=== PATIENT | male | born 1955 | race Caucasian/White ===

== ENCOUNTER 2019-06-16 13:16 | Emergency (ER) | payer MEDICARE, SELFPAY ==
[2019-06-16 13:29] VITALS: BP 150/84; PULSE 57; RESP 19; TEMP 36.8; O2SAT 99; BMI 20.9
--- NOTE | 2019-06-16 13:45 | XR_ITS ---
WS: [id number] XR chest 1V portable [id number] REASON FOR EXAM: cough FINDINGS: Hyper aerated lungs are seen. The cardiac silhouette is not enlarged there is arteriosclerotic changes present. No pneumonia, pleural effusion, pulmonary edema, or mass effect. There is calcified vasculature groin up to the right lung. The hilum and apices normal. XR/XR chest 1V portable [id number] IMPRESSION: Advanced chronic obstructive pulmonary disease. Arteriosclerotic changes.
--- NOTE | 2019-06-16 13:45 | ED_ITS ---
Entered by Amanda Kat, acting as scribe for Josefina Cooper HPI - Chest Pain General: Chief Complaint: Chest Pain Stated Complaint: abnorml ekg Time Seen by Provider: 06/16/19 13:44 Source: patient and family Mode of arrival: ambulatory Limitations: no limitations History of Present Illness: HPI narrative: 64 yo Male presents to ED with complaint of chest pain. Pt states that the pain started at about 1100 today. Pt states that he was at the home when this started. Pt states that he had an aching pain that radiated down his arm. Pt states that he had tingling in his right arm. Pt denies shortness of breath and sweating. Pt states that he had chills. Pt states that he didn't have nausea or vomiting. Pt states that his pain lasted about 30 minutes. Pt states that he took 2 aspirin and drank some cold water. Pt states that his pain is now resolved. Pt's caregiver states that the patient's chest has been bothering him. Pt states that he has been coughing but not like he did when he was smoking. MD complaint: chest pain Pertinent past history: prior MO Onset (ago): hour(s) Timing of current episode: episodic and now resolved Prior episodes: Yes Onset: during rest Pain location: substernal Pain radiation: right arm Pain scale (0-10): 0 Quality: aching Relieving factors: medication-other (aspirin) Exacerbating factors: nothing Context: recent illness Associated symptoms: Deny abdominal pain, diaphoresis, dyspnea, fever(s), nausea, palpitations, syncope or vomiting Treatment prior to arrival: aspirin Review of Systems General: Reports: other (negative unless marked) Const: Reports: chills; Denies: fever or diaphoresis Eyes: Denies: change in vision or blurry vision ENMT: Denies: throat pain, painful swallowing, hoarseness, ear pain, ear discharge, Change in hearing or nasal discharge Card: Reports: chest pain; Denies: palpitations, irregular heart rhythm, syncope, pre-syncope, shortness of breath on exertion or shortness of breath when lying down Resp: Denies: shortness of breath GI: Denies: abdominal pain, nausea, vomiting, vomiting blood, coffee grounds in vomit, diarrhea, constipation, cramping, blood in stool or black tarry stool : Denies: flank pain, difficulty urinating, painful urination, urinary frequency, urinary urgency, decreased urine ouput, urinary incontinence or blood in urine Musc: Reports: extremity pain (tingling in right arm); Denies: neck pain, back pain, extremity swelling, joint pain, joint swelling, joint warmth or joint stiffness Skin/Breast: Denies: rash, skin tenderness or yellow skin Neuro: Denies: headache, numbness in extremities, weakness in extremities, changes in sensation, lack of coordination, difficulty walking, dizziness, vertigo or confusion Endo: Denies: excessive thirst, tired all the time, cold intolerance, excessive sweating, flushing or hot flashes Joseph/Lymph: Denies: easy bruising, easy bleeding, petechiae or enlarged lymph nodes All/Imm: Denies: hives, throat swelling, tongue swelling, facial swelling or acute wheezing PFSH ED PFSH: Social History Smoking and tobacco status: former smoker Physical Exam Const: COMMON NORMALS: no apparent distress, oriented x3, no limitations, healthy appearing and well nourished EXAM LIMITATIONS: no altered mental status GENERAL APPEARANCE: cooperative, well kempt and well developed ORIENTATION/CONSCIOUSNESS: Yes awake HENMT: COMMON NORMALS: normocephalic, head/scalp atraumatic, hearing grossly normal bilaterally, external ears normal, EAC's normal, external nose normal and moist oral mucous membranes HEAD & SCALP: normal to inspection, normocephalic and atraumatic FACE & SINUS: normal facial exam and face symmetric NOSE: external nose normal and nares normal EXTERNAL EAR: Yes external ears normal EXTERNAL AUDITORY CANAL: EAC's normal MOUTH: oral and palatal mucosa normal and tongue normal Eye: COMMON NORMALS: PERRL, EOMs intact bilaterally, conjunctivae normal and no scleral icterus GENERAL EYE: normal appearance of both eyes and normal light reflex CONJUNCTIVA: Yes conjunctivae normal SCLERA: sclerae normal CORNEA: Yes corneas normal PUPIL: Yes PERRL DIRECT OPHTHALMOSCOPY: Yes normal light reflex Neck/C-Spine: COMMON NORMALS: full ROM, no lymphadenopathy, supple, no meningeal signs and no JVD GENERAL: Yes normal visual inspection and Yes trachea midline CERVICAL SPINE: Yes cervical ROM normal Chest: COMMONS NORMALS: inspection of chest normal and palpation of chest norm al Resp: COMMON NORMALS: normal respiratory effort, no retractions, no use of accessory muscles and clear to auscultation bilaterally EFFORT & INSPECTION: Yes able to speak in complete sentences AUSCULTATION: clear to auscultation bilaterally Cardio: COMMON NORMALS: no JVD, regular rate, regular rhythm, S1 normal heart sound, S2 normal heart sound, no gallops, no clicks, no murmurs and no rub JUGULAR VENOUS DISTENTION: no JVD RATE: regular rate RHYTHM: regular rhythm HEART SOUNDS: S1 normal and S2 normal GI: COMMON NORMALS: soft to palpation, non-tender, no hepatosplenomegaly and no masses INSPECTION: Yes normal to inspection PALPATION: Yes soft and Yes no hepatosplenomegaly : COMMON NORMALS: Yes no CVA tenderness BLADDER/KIDNEY EXAM: Yes no CVA tenderness Back/Pelvis: COMMON NORMALS: no CVA tenderness, thoracic and lumbar spine normal to inspection, no thoracic nor lumbar tenderness and thoraco-lumbar ROM normal Extremity: COMMON NORMALS: normal to inspection, full ROM, normal capillary refill, no joint enlargement, no clubbing, cyanosis or edema and no calf tenderness Neuro: COMMON NORMALS: oriented x3, CN's II-XII intact bilaterally, moves all extremities, no focal motor deficits and no sensory deficits noted MENINGEAL SIGNS: Yes no meningeal signs Psych: COMMON NORMALS: mental status grossly normal, thought process normal, cooperative, affect normal, speech normal and activity/motor behavior normal APPEARANCE: Yes well kempt SPEECH: Yes normal speech THOUGHT PROCESS: normal thought process Skin: COMMON NORMALS: no rashes or lesions noted, skin turgor normal, no jaundice, no petechiae and no mottling GENERAL SKIN EXAM: no rashes or lesions noted and turgor normal Course ED course: 1531 -I discussed with the patient his risk for heart disease and I have informed him it would be best if he stayed for cardiac rule out and stress testing but he adamantly refuses. He states that he feels fine now and he wants to go home. I did review with the patient the risk of going home and including or severe permanent disability but he still wants to go. I did review the patient's cath report from 2012 and there was no evidence of any coronary artery disease at that time. Vital Signs: Vital signs: Vital Signs Temperature 98.3 F 03/05/20 13:29 Pulse Rate 57 L 06/16/19 13:29 Respiratory Rate 19 H 06/16/19 13:29 Blood Pressure 150/84 06/16/19 13:29 Pulse Oximetry 99 06/16/19 13:29 MDM - Chest Pain MDM Narrative: Medical decision making narrative: Mr. Becker is a nice 64-year-old male who comes in with chest pain. He had radiation to his right arm but no other associated symptoms. His heart score is 3. I have discussed with the patient again at length including the risk of or severe permanent disability by leaving. Despite this lengthy discussion the patient refuses. He understands he is at risk but he wants to follow-up with his regular doctor. Patient has been warned but he is also been welcomed to return. Lab Data: Attestation: I reviewed the patient's lab results. Labs: Lab Results 06/16/19 06/16/19 06/16/19 Range/Units 13:56 13:56 13:56 WBC 8.1 (4.0-10.0) 10^3/ uL RBC 5.01 (4.1-5.3) 10^6/u L Hgb 14.7 (11.7-16.6) g/dL Hct 44.0 (42.0-52.0) % MCV 87.8 (80-94) fL MCH 29.3 (28.0-34.0) pg MCHC 33.4 (30.0-36.0) g/dL RDW 12.9 (12.1-15.1) % Plt Count 214 (130-400) 10^3/c mm MPV 9.3 (7.4-10.4) fL Neut % (Auto) 61.4 % Lymph % (Auto) 24.6 % [place] % (Auto) 7.5 % Eos % (Auto) 5.0 % Baso % (Auto) 1.4 % Neut # (Auto) 5.0 (1.8-7.7) 10^3/u L Lymph # (Auto) 2.0 (0.8-4.8) 10^3/u L [place] # (Auto) 0.6 (0.2-0.9) 10^3/u L Eos # (Auto) 0.4 (0.0-0.8) 10^3/u L Baso # (Auto) 0.1 (0.0-0.1) 10^3/u L Nucleated RBC % (a uto) 0 % Nucleated RBCs # 0.0 /100WBC Sodium 139 (136-145) mmol/L Potassium 3.9 (3.5-5.1) mmol/L Chloride 102 (98-107) mmol/L Carbon Dioxide 25 (22-29) mmol/L Anion Gap 15.9 (5-19) BUN 12 (8-23) mg/dL Creatinine 1.0 (0.7-1.2) mg/dL GFR Calculation 74.8 L (90-130) mL/min Glucose 103 (65-115) mg/dL Calcium 10.1 (8.5-10.5) mg/dL Magnesium 2.1 (1.7-2.3) mg/dL Total Bilirubin 0.5 (0.15-1.2) mg/dL AST 19 (0-40) U/L ALT 13 (0-41) U/L Alkaline Phosphata se 96 (40-130) IU/L Troponin T Baselin e 12 (0-15) ng/mL Troponin T 120 Min [place] (0-15) ng/mL Delta Troponin T (0-10) ABS# NT-Pro-B Natriuret Pep 385 H (0-125) pg/mL Total Protein 7.7 (6.6-8.7) g/dL Albumin 4.2 (3.5-5.2) g/dL Globulin 3.5 (1.3-4.6) g/dL Lipase 26 (13-60) U/L Influenza Type A A g (Negative) POC Influenza B Ag (Negative) 06/16/19 06/16/19 Range/Units 14:29 17:11 WBC (4.0-10.0) 10^3/ uL RBC (4.1-5.3) 10^6/u L Hgb (11.7-16.6) g/dL Hct (42.0-52.0) % MCV (80-94) fL MCH (28.0-34.0) pg MCHC (30.0-36.0) g/dL RDW (12.1-15.1) % Plt Count (130-400) 10^3/c mm MPV (7.4-10.4) fL Neut % (Auto) % Lymph % (Auto) % [place] % (Auto) % Eos % (Auto) % Baso % (Auto) % Neut # (Auto) (1.8-7.7) 10^3/u L Lymph # (Auto) (0.8-4.8) 10^3/u L [place] # (Auto) (0.2-0.9) 10^3/u L Eos # (Auto) (0.0-0.8) 10^3/u L Baso # (Auto) (0.0-0.1) 10^3/u L Nucleated RBC % (a uto) % Nucleated RBCs # /100WBC Sodium (136-145) mmol/L Potassium (3.5-5.1) mmol/L Chloride (98-107) mmol/L Carbon Dioxide (22-29) mmol/L Anion Gap (5-19) BUN (8-23) mg/dL Creatinine (0.7-1.2) mg/dL GFR Calculation (90-130) mL/min Glucose (65-115) mg/dL Calcium (8.5-10.5) mg/dL Magnesium (1.7-2.3) mg/dL Total Bilirubin (0.15-1.2) mg/dL AST (0-40) U/L ALT (0-41) U/L Alkaline Phosphata se (40-130) IU/L Troponin T Baselin e (0-15) ng/mL Troponin T 120 Min [place] 10.76 (0-15) ng/mL Delta Troponin T -1.24 L (0-10) ABS# NT-Pro-B Natriuret Pep (0-125) pg/mL Total Protein (6.6-8.7) g/dL Albumin (3.5-5.2) g/dL Globulin (1.3-4.6) g/dL Lipase (13-60) U/L Influenza Type A A g Negative (Negative) POC Influenza B Ag Negative (Negative) Imaging Data^: CXR: Radiologist's impression: [address] [address] XRay Report Signed Patient: Jack Becker #: [id number] : 3Acct#:[id number] Age/Sex: 64 / MADM Date: 06/16/19 Loc: ERRoom/Bed: Attending Dr: Ordering Provider/Ordering MD: Josefina Cooper DO Date of Service: 06/16/19 Procedure(s): XR chest 1V portable [id number] Accession Number(s): [id number] Report Number: [id number] WS: [id number] XR chest 1V portable [id number] REASON FOR EXAM: cough FINDINGS: Hyper aerated lungs are seen. The cardiac silhouette is not enlarged there is arteriosclerotic changes present. No pneumonia, pleural effusion, pulmonary edema, or mass effect. There is calcified vasculature groin up to the right lung. The hilum and apices normal. XR/XR chest 1V portable [id number] IMPRESSION: Advanced chronic obstructive pulmonary disease. Arteriosclerotic changes. Dictated By:Merlin Gottlieb DO Signed By:Merlin Gottlieb DOSigned Date/Time:06/16/191412 DD/ 1411 EKG Data^: EKG 1: Attestation: I personally reviewed and interpreted this EKG as follows: EKG interpretation date: 06/16/19 EKG interpretation time: 14:00 Interpretation: Normal sinus rhythm at 51 beats a minute, first-degree AV block, left bundle branch block. Otherwise no acute ST or T wave changes. Similar to previous. EKG 2: Attestation: I personally reviewed and interpreted this EKG as follows: EKG interpretation date: 06/16/19 EKG interpretation time: 15:44 Discharge Plan Discharge Patient Disposition: Left Against Medical Advice Clinical Impression: Chest pain Qualifiers: Chest pain type: unspecified Qualified Code(s): R07.9 - Chest pain, unspecified Condition: Stable Prescriptions: No Action Aspir-81 81 mg Tablet,Delayed Release (Dr/Ec) 81 mg PO DAILY RF: 0 metoprolol tartrate 25 mg tablet 25 mg PO BID RF: 0 Discharge Orders: Discharge Order (Routine); Ordered 06/16/19 Ordered By: Josefina Cooper Referrals: Tona Morse FNP [Primary Care Provider] - 1-3 days Discharge Diet: Advance as tolerated Discharge Activity: Increase activity as tolerated Patient Instructions: Chest Pain (ED) Activity Restrictions/Additional Instructions: You're leaving AGAINST MEDICAL ADVICE and are at risk for or severe permanent disability by doing so. You are more than welcome to return at any time for recheck and for further evaluation and care suture change you change your mind. Stop your metoprolol until advised further by your primary care physician. You have refused to stay for further evaluation of your heart and this puts you at risk of or severe permanent disability so if you change your mind or your symptoms change/worsen you are more than welcome to return to the ER at any time for further evaluation and care. Coding Level of Care Code ED Research Subject for Chg Fwd Exam Comprehensive The documentation recorded by the Shey owens Carmen, accurately reflects the service I personally performed and the decisions made by , Josefina Cooper Jun 16, 2019 13:16
--- NOTE | 2019-06-16 13:45 | ECG_ITS ---
Measurements Intervals [place] Rate: 51 P: 40 VA: 217 QRS: -11 QRSD: 195 T: 96 QT: 516 QTc: 476 SINUS BRADYCARDIA WITH FIRST DEGREE AV BLOCK LEFT BUNDLE BRANCH BLOCK [120+ ms QRS DURATION, 80+ ms Q/S IN V1/V2, 85+ ms R IN I/aVL/V5/V6] No previous ECG available for comparison Electronically Signed On 06-16-2019 16:58:36 CORPORATE CONSULTANT by Kai Kaufman M.D. [id number]
[2019-06-16 14:21] LABS: Basophils # 0.1 10^3/uL (0.0-0.1); Basophils % 1.4 %; Eosinophils # 0.4 10^3/uL (0.0-0.8); Hemoglobin 14.7 g/dL (11.7-16.6); Lymphocytes % 24.6 %; Mean Corpuscular HGB Conc 33.4 g/dL (30.0-36.0); Mean Corpuscular Hemoglobin 29.3 pg (28.0-34.0); Mean Corpuscular Volume 87.8 fL (80-94); Mean Platelet Volume 9.3 fL (7.4-10.4); Monocytes # 0.6 10^3/uL (0.2-0.9); Monocytes % 7.5 %; Neutrophils % 61.4 %; Nucleated Red Blood Cells % 0 %; Platelet Count 214 10^3/cmm (130-400); Red Blood Count 5.01 10^6/uL (4.1-5.3); Red Cell Distribution Width 12.9 % (12.1-15.1); White Blood Count 8.1 10^3/uL (4.0-10.0)
[2019-06-16] MEDS: nitroglycerin 0.4 mg sublingual Tablet SUBLINGUAL (14:27)
[2019-06-16] MEDS: aspirin 325 mg Tablet PO (14:27)
[2019-06-16] MEDS: sodium chloride 0.9% 1,000 ML 100 ML IV (14:28)
[2019-06-16 14:42] LABS: Troponin(5th) Baseline 12 ng/mL (0-15)
[2019-06-16 14:52] LABS: Alanine Aminotransferase 13 U/L (0-41); Albumin Level 4.2 g/dL (3.5-5.2); Alkaline Phosphatase 96 IU/L (40-130); Anion Gap 15.9 (5-19); Aspartate Amino Transferase 19 U/L (0-40); Blood Urea Nitrogen 12 mg/dL (8-23); Calcium 10.1 mg/dL (8.5-10.5); Carbon Dioxide 25 mmol/L (22-29); Chloride 102 mmol/L (98-107); Globulin 3.5 g/dL (1.3-4.6); Glomerular Filtration Rate 74.8 mL/min (90-130); Glucose 103 mg/dL (65-115); Lipase 26 U/L (13-60); Magnesium 2.1 mg/dL (1.7-2.3); NT Pro B Type Natriuretic Pept 385 pg/mL (0-125); Potassium 3.9 mmol/L (3.5-5.1); Sodium 139 mmol/L (136-145); Total Bilirubin 0.5 mg/dL (0.15-1.2); Total Protein 7.7 g/dL (6.6-8.7)
[2019-06-16 14:57] LABS: Influenza A by IFA Negative (Negative); Influenza B by IFA Negative (Negative)
--- NOTE | 2019-06-16 15:45 | ECG_ITS ---
Measurements Intervals [place] Rate: 45 P: 60 GA: 224 QRS: 4 QRSD: 180 T: 88 QT: 540 QTc: 471 SINUS BRADYCARDIA WITH FIRST DEGREE AV BLOCK LEFT BUNDLE BRANCH BLOCK Compared to ECG 06/16/2019 14:00:41 No significant changes Electronically Signed On 06-17-2019 15:53:20 CLINICAL TEAM LEAD by Hedy Vasquez M.D. [id number] f
[2019-06-16 17:38] LABS: Troponin 5 2HR 10.76 ng/mL (0-15)
[2019-06-16 17:39] LABS: Troponin 5 2HR Delta -1.24 ABS# (0-10)
[2019-06-16 18:40] VITALS: BP 147/82; PULSE 62; RESP 18; TEMP 36.3; O2SAT 99
--- NOTE | 2019-06-16 19:45 | ECG_ITS ---
Measurements Intervals [place] Rate: 59 P: 10 HI: 195 QRS: -26 QRSD: 185 T: 108 QT: 473 QTc: 470 SINUS BRADYCARDIA LEFT BUNDLE BRANCH BLOCK No previous ECG available for comparison Electronically Signed On 06-17-2019 15:53:31 BUCKET CHUCKER by Hedy Vasquez M.D. [id number] f
== END 2019-06-16 18:57 | disposition left against medical advice (07) ==
PROVIDERS: Emergency Provider Emergency Medicine; PCP Nurse Practitioner Family
DX: R07.9 Chest pain, unspecified (principal); J44.9 Chronic obstructive pulmonary disease, unspecified; R00.1 Bradycardia, unspecified; I44.7 Left bundle-branch block, unspecified; I44.0 Atrioventricular block, first degree; Z87.891 Personal history of nicotine dependence
CPT/HCPCS: 12345; 36415; 71045; 80053; 83690; 83735; 83880; 84484; 85025; 87804; 93005; 96360; 96361; 99283; 99284; J7030

== ENCOUNTER → 2021-07-08 10:22 | Outpatient (BNVA) | payer MEDICARE, MEDICAID, SELFPAY | PROVIDERS: PCP Nurse Practitioner Family; Referring Provider Nurse Practitioner Family; Visit Provider Surgery | DX: K40.90 Unilateral inguinal hernia, without obstruction or gangrene, not specified as recurrent (principal) | CPT/HCPCS: 87635 ==

== ENCOUNTER 2021-07-15 10:06 | Day surgery (SDC) | payer MEDICARE, MEDICAID, SELFPAY ==
--- NOTE | 2021-07-12 09:13 | ECG_ITS ---
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 Measurements Intervals [place] Rate: 42 P: 44 SC: 216 QRS: -46 QRSD: 178 T: 110 QT: 546 QTc: 460 Interpretive Statements SINUS BRADYCARDIA WITH FIRST DEGREE AV BLOCK LEFT AXIS DEVIATION [QRS AXIS < -30] INTRAVENTRICULAR CONDUCTION DELAY [130+ ms QRS DURATION] Compared to ECG 06/16/2019 15:44:19 Left-axis deviation now present Intraventricular conduction delay now present Left bundle-branch block no longer present Electronically Signed On 07-12-2021 13:59:09 CDT by Ty Ortega M.D. [id number]
[2021-07-12 09:17] VITALS: BMI 20.2
[2021-07-12 10:18] LABS: Basophils # 0.1 10^3/uL (0.0-0.1); Basophils % 2.3 %; Eosinophils # 0.3 10^3/uL (0.0-0.8); Hematocrit 44.6 % (42.0-52.0); Hemoglobin 14.9 g/dL (11.7-16.6); Lymphocytes # 1.3 10^3/uL (0.8-4.8); Lymphocytes % 28.3 %; Mean Corpuscular HGB Conc 33.4 g/dL (30.0-36.0); Mean Corpuscular Hemoglobin 30.8 pg (28.0-34.0); Mean Corpuscular Volume 92.1 fl (80-94); Mean Platelet Volume 9.3 fL (7.4-10.4); Monocytes # 0.4 10^3/uL (0.2-0.9); Monocytes % 8.5 %; Neutrophils # 2.52 10^3/uL (1.8-7.7); Neutrophils % 53.7 %; Nucleated Red Blood Cells % 0 %; Platelet Count 215 10^3/cmm (130-400); Red Blood Count 4.84 10^6/uL (4.1-5.3); Red Cell Distribution Width 12.3 % (12.1-15.1); White Blood Count 4.7 10^3/uL (4.0-10.0)
[2021-07-12 10:32] LABS: Anion Gap 13.4 (5-19); Blood Urea Nitrogen 17 mg/dL (8-23); Calcium 10.1 mg/dL (8.5-10.5); Carbon Dioxide 24 mmol/L (22-29); Chloride 105 mmol/L (98-107); Creatinine Clr Calc Pharmacy 89.3605; Glomerular Filtration Rate 96.1 mL/min (90-130); Glucose 68 mg/dL (65-115); Osmolality Calculated 286 mOsm/kg (285-295); Potassium 4.4 mmol/L (3.5-5.1); Sodium 138 mmol/L (136-145)
--- NOTE | 2021-07-12 11:09 | P.ANESASSM_ITS ---
Pre-Anesthetic Assessment Height/Weight: Height 1.8 m Weight 65.771 kg Preop Diagnosis: Hernia Operation Date: 07/15/21 11:45 Proposed Procedures p Laparoscopic Inguinal Hernia Repair 32260/right inguinal hernia K40.90(Right) - Glenn Chang MD Was Beta Theresa taken within 24 hours: Yes Social Tobacco Exam alert, oriented x 3 and regular rate & rhythm B/L breath sounds diminished Airway Submandibular: within normal limits Cervical ROM: within normal limits Mallampati: Class I Dentition: false Pulmonary Denies CARTY, SOB Able to chop wood and run chain saw daily w/o CP, SOB CV/HEM Arrythmia and Myocardial Infarction (Reports having a hx of several NE's with cardiac cath, however states he he has not had cardiac stents ) Hx of non-ischemic cardiomyopathy and LBB w/ EF of 45-50% METS > 4 , able to go up flight of stairs w/o CP, run chain saw and chop wood without CP or SOB EKG pending final read ? Interpretive Statements SINUS BRADYCARDIA WITH FIRST DEGREE AV BLOCK LEFT AXIS DEVIATION? [QRS AXIS < -30] INTRAVENTRICULAR CONDUCTION DELAY? [130+ ms QRS DURATION] Compared to ECG 06/16/2019 15:44:19 Left-axis deviation now present Intraventricular conduction delay now present Left bundle-branch block no longer present [id number] None reported Hepatic None reported GI None reported Metabolic None reported Musc/skel None reported Neuropsych None reported Anesthetic Plan ASA status: 3 Anesthesia: Anesthesia Evaluation and General Other: We discussed risk and benefits of general anesthesia including PONV, sore throat (sometimes severe), corneal abrasion, positioning and peripheral nerve injuries, life threatening allergic reaction, post operative ICU admission requiring prolonged intubation, stroke, heart attack, , and rare incidences of recall. Patient consents to proceed with general anesthesia. Risk of > 500 ml blood loss (7ml/kg in children): No Medications/Allergies Home Medications Medication Instructions Recorded Confirmed Last Taken Type aspirin 81 mg tablet,delayed 81 mg PO DAILY 06/16/19 07/12/21 06/16/19 History release (Aspir-) loratadine-pseudoephedrine ER 10 1 tab PO DAILY 03/15/21 07/12/21 Unknown History mg-240 mg tablet,extended [id number] (Claritin-D 24 Hour) metoprolol tartrate 25 mg tablet 25 mg PO BID #180 tab 03/15/21 07/12/21 Unknown Rx nitroglycerin 0.4 mg sublingual 0.4 mg SUBLINGUAL Q5M PRN #30 tab 03/15/21 07/12/21 Unknown Rx tablet tamsulosin 0.4 mg capsule (Flomax) 0.4 mg PO DAILY 07/08/21 07/12/21 Unknown History Allergies Allergy/AdvReac Type Severity Reaction Status Date / Time No Known Allergies Allergy Verified 07/09/21 17:21 [facility] Anesthesia Medical History Hypertension Left bundle branch block Non-ischemic cardiomyopathy LVEF 40-45% Tobacco abuse Family History Father CAD (coronary artery disease) Grandfather CAD (coronary artery disease) Stroke Brother Diabetes Hypertension Denies family history of Clotting disorder Dementia Hyperlipidemia Psychiatric illness Chronic kidney disease (CKD) Suicide Anesthesia complication Bleeding disorder Family history of premature coronary artery disease Lung disease Cancer Social History Smoking and tobacco status: current every day smoker Alcohol intake: never Marital status: Single service: No Current occupational status: retired Data Anesthesia : 07/12/21 09:35 07/12/21 09:35 Short CBC 07/12/21 Range/Units 09:35 WBC 4.7 (4.0-10.0) 10^3/uL Hgb 14.9 (11.7-16.6) g/dL Hct 44.6 (42.0-52.0) % MCV 92.1 (80-94) fl Plt Count 215 (130-400) 10^3/cmm Neut % (Auto) 53.7 % Neut # (Auto) 2.52 (1.8-7.7) 10^3/uL BMP 07/12/21 09:35 Sodium 138 Potassium 4.4 Chloride 105 Carbon Dioxide 24 BUN 17 Creatinine 0.8 Glucose 68 Calcium 10.1 Cardiac Studies: No Data to Display
[2021-07-15] VITALS (10 sets, daily range): BP systolic 122–143; BP diastolic 62–69; PULSE 47–86; RESP 12–18; TEMP 36.4–36.6; O2SAT 97–100
--- NOTE | 2021-07-15 10:41 | P.ANESUD_ITS ---
Pre-Anesthetic Update Pre-Anesthetic Assessment: Date of Surgery/Procedure: 07/15/21 Preop Erna gnosis: Right inguinal Hernia Proposed Procedure: Operation Date: 07/15/21 11:45 Proposed Procedures p Laparoscopic Inguinal Hernia Repair 03730/right inguinal hernia K40.90(Right) - Glenn Chang MD Any changes to Pre-Anesthetic Assessment?: No Last Intake: Intake Last Liquid Date 07/14/21 Last Liquid Time 21:00 Last Solid Date 07/14/21 Last Solid Time 21:00 Vitals: Temperature 97.9 F 07/15/21 10:12 Temperature Source Temporal Artery S can 07/15/21 10:12 Pulse Rate 51 L 07/15/21 10:12 Respiratory Rate 18 07/15/21 10:12 Blood Pressure 128/67 07/15/21 10:12 Blood Pressure Chasity n 87 07/15/21 10:12 Pulse Oximetry 97 07/15/21 10:12 Oxygen Delivery Me thod 07/15/21 10:17 Exam: Pre-Anes Outpt Exam: alert, oriented x 3, clear to auscultation bilaterally and regular rate & rhythm Cardiac Studies: No Data to Display
[2021-07-15] MEDS: sodium chloride 0.9% 1,000 ML 30 ML IV (10:42)
[2021-07-15] MEDS: acetaminophen 1,000 MG/100 ML PIGGYBACK 400 MG IV (10:42)
--- NOTE | 2021-07-15 12:44 | W.PM.OPSUD ---
Surgery/Procedure H&P Update DATE OF PROCEDURE: July 15, 2021 DATE H&P PERFORMED: 07/08/21 H&P UPDATE INFORMATION: I have reviewed H&P completed within last 30 days, I have examined patient prior to procedure and No changes to prior documentation PREOP DIAGNOSIS: Right inguinal Hernia PRIMARY INDICATION FOR PROCEDURE: The same PLANNED PROCEDURE: Operation Date: 07/15/21 12:35 Proposed Procedures p Laparoscopic Inguinal Hernia Repair 56652/right inguinal hernia K40.90(Right) - Glenn Chang MD
[2021-07-15] MEDS: ampicillin-sulbactam 3 GM in sodium chloride 0.9% (plus) 50 ML IV (14:12)
--- NOTE | 2021-07-15 15:28 | P.OP_ITS ---
Operative Report Date of procedure: July 15, 2021 Pre-op diagnosis: Preop Diagnosis Right inguinal Hernia Post-op diagnosis: The same in addition to umbilical hernia Post-op findings: Right indirect inguinal hernia and lipoma of the cord Small umbilical hernia containing omental fat Procedure done: 1-Laparoscopic right inguinal hernia repair with mesh placement 2-Laparoscopic excision of lipoma of the right spermatic cord 3-laparoscopic umbilical hernia repair without mesh placement Implants: Right 3D medium size Specimens removed/disposition: Umbilical hernial sac and content lipoma of the cord Surgeon: Glenn Chang MD Campaign Assistant: senior technologist Martha Circulating nurse Tasha Anesthesia: General (water pipe installer Asa Lewis and Michela) Estimated blood loss (mL): 10 IV fluids (mL): 900 Procedure: Transabdominal preperitoneal (ALYSIA) approach. Patient was identified in the holding area the right groin was marked by me.patient was then transferred to the operating room where he was placed in supine position, with both arms were tucked, antibiotic was given with induction, endotracheal tube was placed per anesthesia, Garza catheter was inserted by the circulating nurse and revealed clear urine, prep and drape of the abdomen was done under the usual sterile technique as well as the scrotal area. Time-out was done verifying the patient's name/date of /planned procedure destination after the procedure, all were in agreement. SCDs confirmed to be functioning, preoperative antibiotics administered per protocol, and beta jenny protocol was confirmed. A vertical skin incision of 1.2 cm was made with 11 blade knife through the supra umbilicus, noticed that the patient does have chronic incarcerated omental fat within the umbilical site that was excised and sent for permanent pathology. Noticed that the defect less than an inch in diameter. And prior to the dissection of the hernia sac. Incision was carried down to the subcutaneous tissue and deepened to identify the anterior fascia, two stay sutures were applied to the fascia, and safe entrance to the abdominal cavity was achieved after the hernia was dissected a Martines trocar technique safe entry to the abdominal cavity was achieved verified by using 10 mm zero degree laparoscopy, switched to a 30 degrees scope,low flow followed by a higher flow of CO2 gas up to 15 mmHg. There was no evidence of injury to intra-abdominal structures from the port entry, attention was deviated to both groins, there was a large indirect hernia defect with herniation of peritoneum and preperitoneal fat was noted on the right side, two 5 mm ports were placed on the right and left lateral aspect of the abdomen slightly above the level of the umbilicus, under direct visualization, Exparel local was injected at all trocar sites prior to incisions. The peritoneum above the level of the iliopubic tract was incised to the left of the midline and dissection was performed to create a preperitoneal space medial to lateral aspect up to anterior superior iliac spine on the right side. Dissection was continued onto the medial aspect and the right spermatic was identified, there was evidence of indirect inguinal hernia .the sac was dissected. As it applied medial to the right inferior epigastric vessels/ dissection was performed to clear the space lateral to the spermatic cord and dorsomedial to it, the hernia sac was reduced and retracted far back, so there was an evidence of lipoma of the cord that was excised and sent for permanent pathology. Also there was a small direct hernia defect that was dissected. Then a medial right 3-D mesh was rolled and placed into the abdominal cavity through the Martines port, after the mesh was introduced it was positioned to lie in the myopectineal orifice and the mesh was unrolled and this covered the entire my myope pectineal orifice. Intra-abdominal pressure was dropped to 12 mmHg to help placement of the mesh good position On the lateral aspect of the mesh extended up to the anterior superior iliac spine on the medial aspect the mesh crossed the midline onto the left side, then using absorbable tacks, placed above the iliopubic tract onto the rectus abdominis muscle on the medial aspect and also to the lateral abdominal wall superomedial to the sacroiliac spine, then the mesh was also anchored to the pubis and the Jamey's ligament inferiorly. The peritoneal leaflets were then brought together to cover the mesh and isolated from the other viscera, extra tacks were used to secure the peritoneum in good position. Final look demonstrated good hemostasis and the mesh in good position A total of 20 mL Exparel 40 ml Normal saline 20 ml bupivacaine 0.25% were injected at the remaining of the tacks site and trocar sites as well Final look demonstrated good hemostasis.Then the fascia on the supra umbilical fascial defect was closed using #1 PDS sutures under direct visualization using fascial closure device Andre Milan.All ports were removed,then the abdomen was desufflated. All skin incisions were closed with 4-0 Monocryl subcuticular suture and Dermabo nd was applied. The patient tolerated the procedure well, Garza catheter was taken out ,got extubated and was transferred to the recovery area in stable condition All counts of instruments, needles and sponges were completed I was present for the whole entire procedure
--- NOTE | 2021-07-15 16:01 | ANE.PACU2 ---
Inpatient post-anesthesia follow up: Airway intact: Yes Vital signs: Temperature 97.6 F Pulse Rate 86 Respiratory Rate 14 Blood Pressure 132/65 Pulse Oximetry 100 Oxygen Delivery Me thod Nasal Cannula Oxygen Flow Rate 3 Fraction of Inspir ed Oxygen Hydration adequate: Yes Nausea and vomiting: No Pain level: 2 Mental status: Baseline
--- NOTE | 2021-07-15 16:02 | SUR.PHASEI ---
15:42 RECEIVED PATIENT FROM OR STAFF. SB ON MONITOR. AIRWAY PATENT ,VENTILATING WELL.
--- NOTE | 2021-07-15 16:04 | SUR.PHASEI ---
15:55 ORAL AIRWAY DC ED . AIRWAY PATENT. SATS 100%
[2021-07-15] MEDS: ondansetron 2 mg/ML SDV 2 mL 4 MG IVP (16:37)
[2021-07-15] MEDS: fentaNYL 50 mcg/mL INJ 2mL IVP (16:37)
[2021-07-15] MEDS: HYDROcodone-acetaminophen 5-325 mg Tablet 1 TAB PO (16:53)
== END 2021-07-15 17:12 | disposition home or self-care (01) ==
PROVIDERS: Anesthesiology; PCP Nurse Practitioner Family; Visit Provider Surgery
PROC: (CPT 49650; principal; 2021-07-15 12:35)
PROC: 0WQF4ZZ Repair Abdominal Wall, Percutaneous Endoscopic Approach (ICD-10-PCS; CPT 49650; 2021-07-15 12:35)
DX: K40.90 Unilateral inguinal hernia, without obstruction or gangrene, not specified as recurrent (principal); D17.6 Benign lipomatous neoplasm of spermatic cord; K42.0 Umbilical hernia with obstruction, without gangrene; I25.2 Old myocardial infarction; Z95.5 Presence of coronary angioplasty implant and graft; I42.8 Other cardiomyopathies; R00.1 Bradycardia, unspecified; I44.0 Atrioventricular block, first degree; Z82.49 Family history of ischemic heart disease and other diseases of the circulatory system; F17.210 Nicotine dependence, cigarettes, uncomplicated; Z79.82 Long term (current) use of aspirin
CPT/HCPCS: 49650; 49653; 51702; 80048; 85025; 88302; 88304; 93005; C9290; J0295; J1100; J2405; J2704; J3010; J3490; J7030

== ENCOUNTER → 2021-07-25 12:13 | Outpatient (BNVA) | payer MEDICARE, MEDICAID, SELFPAY | PROVIDERS: PCP Nurse Practitioner Family; Visit Provider Surgery | DX: Z98.890 Other specified postprocedural states (principal); F17.210 Nicotine dependence, cigarettes, uncomplicated ==

== ENCOUNTER → 2021-09-05 13:28 | Outpatient (BNVA) | payer MEDICARE, MEDICAID, SELFPAY | PROVIDERS: PCP Nurse Practitioner Family; Visit Provider Surgery | DX: Z09 Encounter for follow-up examination after completed treatment for conditions other than malignant neoplasm (principal) | CPT/HCPCS: 99024 ==

== ENCOUNTER → 2021-09-13 10:38 | Outpatient (BNVA) | payer MEDICARE, MEDICAID, SELFPAY | PROVIDERS: PCP Nurse Practitioner Family; Visit Provider Internal Medicine | DX: I42.8 Other cardiomyopathies (principal); I10 Essential (primary) hypertension; Z87.891 Personal history of nicotine dependence | CPT/HCPCS: 99213 ==

== ENCOUNTER 2021-10-26 12:38 | Inpatient (IN) | payer MEDICARE, MEDICAID, SELFPAY ==
[2021-10-26] VITALS (10 sets, daily range): BP systolic 105–116; BP diastolic 44–65; PULSE 47–54; RESP 17; TEMP 36.2–37.2; O2SAT 94–97; BMI 19.4
--- NOTE | 2021-10-26 13:07 | W.ED.CHESTPA ---
HPI - Chest Pain General: Chief Complaint: Chest Pain Stated Complaint: cp,weakness Time Seen by Provider: 10/26/21 13:07 History of Present Illness: Mr. Becker is a 66-year-old gentleman with history of hypertension, tobaccoism, nonischemic cardiomyopathy presenting to the emergency department due to chest pain. He reports infrequent history of chest pain perhaps less than once per week however this is becoming more frequent and more intense. Today he describes an episode of chest pain that occurred with exertion which was pressure in the middle of his chest with radiation down the right arm. Additionally had mild headache and presyncopal type feelings where he found it difficult to walk. This feeling has improved however the chest pain persisted until multiple nitro end EMS administered nitro paste. Denies other recent changes in health. Intensity symptoms at worst was moderate to severe. Course is improved with the nitro as mentioned. No other specific changes in health, exacerbating, or alleviating factors identified. Onset (ago): hour(s) Timing of current episode: constant Prior episodes: Yes Onset: during exertion Pain location: substernal Pain radiation: right arm and neck Severity: moderate Quality: other Relieving factors: nothing Exacerbating factors: exertion Associated symptoms: Reports other (Presyncope) Review of Systems General: Reports: 10 or more systems reviewed and unremarkable except in HPI and below PFSH ED PFSH: Medical History (Updated 10/29/21 @ 00:01 by ) Chest pain Hypertension Left bundle branch block Non-ischemic cardiomyopathy LVEF 40-45% Pre-syncope Right groin hernia Sinus bradycardia Tobacco abuse Surgical History (Updated 10/27/21 @ 12:00 by Oren Tillman MD) Hx of hernia repair Laparoscopic Inguinal Hernia Repair 12777/right inguinal hernia Family History Father CAD (coronary artery disease) Grandfather CAD (coronary artery disease) Stroke Brother Diabetes Hypertension Denies family history of Clotting disorder Dementia Hyperlipidemia Psychiatric illness Chronic kidney disease (CKD) Suicide Anesthesia complication Bleeding disorder Family history of premature coronary artery disease Lung disease Cancer Social History Smoking and tobacco status: current some day smoker Alcohol intake: never Marital status: Single service: No Current occupational status: retired Physical Exam Const: COMMON NORMALS: patient oriented x3 and alert GENERAL APPEARANCE: cooperative and well developed HENMT: COMMON NORMALS: normocephalic and atraumatic HEAD & SCALP: normocephalic and atraumatic THROAT: posterior oropharynx normal Eye: COMMON NORMALS: conjunctivae normal CONJUNCTIVA: Yes conjunctivae normal SCLERA: sclerae normal Neck/C-Spine: COMMON NORMALS: supple GENERAL: Yes trachea midline Resp: COMMON NORMALS: normal respiratory effort and clear to auscultation bilaterally EFFORT & INSPECTION: Yes able to speak in complete sentences AUSCULTATION: clear to auscultation bilaterally Cardio: COMMON NORMALS: regular rate and regular rhythm RATE: regular rate RHYTHM: regular rhythm GI: COMMON NORMALS: Soft to palpation PALPATION: Yes Soft to palpation and No Tenderness to palpation present (GI) PERCUSSION: normal to percussion Extremity: GENERAL: Yes normal exam except as noted and No edema Neuro: COMMON NORMALS: patient oriented x3, CN's II-XII intact bilaterally, moves all extremities, no focal motor deficits and no sensory deficits noted SENSORIUM/ORIENTATION: Yes alert and No Orientation impaired Psych: COMMON NORMALS: mental status grossly normal and Normal thought process present THOUGHT PROCESS: Normal thought process present Course ED course: - Patient was seen and evaluated by me at bedside - Patient placed on cardiac monitors, IV access obtained - Initial evaluation notable for exam as above. EKG showing sinus rhythm with bradycardia and bundle branch block. No STEMI. - Labs and xrays personally interpreted by me - Patient had already received aspirin - Labs notable for no significant hematologic or metabolic abnormality to explain symptoms. Delta troponin negative. BNP only trace elevated. - Imaging notable for no lobar consolidation or pneumothorax on chest x-ray. CT head obtained secondary to presyncope and negative for acute intracranial pathology. I was subsequently called to reassess patient who endorsed left facial tingling. No focal neurologic deficits appreciated on exam however given clinical history advanced imaging felt to be necessary. CTA negative for acute pathology requiring intervention - Upon serial reexamination after treatment the patient was similar - Based on patient history, evaluation, and testing as interpreted the most likely cause of the patient's condition is chest pain with presyncope in a patient who is not low risk by heart score. - The results of ED evaluation were discussed with the patient including plan for admission due to requirement for level of care not available if discharged to prevent significant worsening/deterioration. - Admitting service was contacted and Dr Tillman with the hospitalist service agreed to admit the patient - Patient was admitted without further deterioration or significant events. Note: Click bubbles or prepopulated murry in note writing are used for assistance with data collection and billing and are inherently more limited than narrative and other text portions of this note. Please use narrative for additional clinical history and defer to narrative/free test for any case of contradictory information. If information appears in only free text or click bubble it should be considered present or absent as reported. Please contact note fiction and nonfiction prose writer for clarifications of clinical information or contradictory information. MDM is a brief summary, contradictory or erroneous seeming information should be clarified and full note should be reviewed. Vital Signs: Vital signs: Vital Signs Temperature 98.4 F 10/28/21 14:05 Pulse Rate 90 10/28/21 14:05 Respiratory Rate 16 10/28/21 11:45 Blood Pressure 166/95 10/28/21 14:05 Pulse Oximetry 95 10/28/21 14:05 Oxygen Delivery Me thod 10/28/21 14:05 MDM - Chest Pain Medical Decision Making 66-year-old gentleman presenting with chest pain and presyncope. ED evaluation without evidence of STEMI or acute PR. Patient is not low risk by heart score and giving increased frequency of chest pain story is concerning for unstable angina. Admitted for further management. Medical Records I reviewed the patient's medical records. Lab Data I reviewed the patient's lab results. : 10/28/21 03:20 10/28/21 03:20 Radiology Impressions Chest X-Ray 10/26/21 13:08 IMPRESSION: Emphysematous changes, lungs are clear Head CT 10/26/21 13:43 IMPRESSION: Negative for intracranial hemorrhage or mass effect. Head/Neck CTA 10/26/21 15:34 IMPRESSION: No large vessel stenosis or occlusion. IMPRESSION: No stenosis or occlusion. REFERENCES: NASCET CRITERIA. The degree of internal carotid artery stenosis is based on NASCET criteria. Normal is no stenosis. Mild is less than 50% stenosis. Moderate is 50-69% stenosis. Severe is 70% to 99% stenosis. Total occlusion is no detectable patent lumen. Laboratory Results WBC 6.2 10^3/uL (4.0-10.0) 10/26/21 11:23 RBC 4.49 10^6/uL (4.1-5.3) 10/26/21 11:23 Hgb 14.2 g/dL (11.7-16.6) 10/26/21 11:23 Hct 41.3 % (42.0-52.0) L 10/26/21 11:23 MCV 92.0 fl (80-94) 10/26/21 11:23 MCH 31.6 pg (28.0-34.0) 10/26/21 11:23 MCHC 34.4 g/dL (30.0-36.0) 10/26/21 11:23 RDW 12.4 % (12.1-15.1) 10/26/21 11:23 Plt Count 235 10^3/cmm (130-400) 10/26/21 11:23 MPV 9.7 fL (7.4-10.4) 10/26/21 11:23 Neut % (Auto) 49.9 % 10/26/21 11:23 Lymph % (Auto) 33.4 % 10/26/21 11:23 [place] % (Auto) 10.6 % 10/26/21 11:23 Eos % (Auto) 4.0 % 10/26/21 11:23 Baso % (Auto) 1.8 % 10/26/21 11:23 Neut # (Auto) 3.11 10^3/uL (1.8-7.7) 10/26/21 11:23 Lymph # (Auto) 2.1 10^3/uL (0.8-4.8) 10/26/21 11:23 [place] # (Auto) 0.7 10^3/uL (0.2-0.9) 10/26/21 11:23 Eos # (Auto) 0.3 10^3/uL (0.0-0.8) 10/26/21 11:23 Baso # (Auto) 0.1 10^3/uL (0.0-0.1) 10/26/21 11:23 Nucleated RBC % (auto) 0 % 10/26/21 11:23 Nucleated RBCs # 0.0 /100WBC 10/26/21 11:23 Sodium 138 mmol/L (136-145) 10/26/21 11:23 Potassium 3.8 mmol/L (3.5-5.1) 10/26/21 11:23 Chloride 103 mmol/L (98-107) 10/26/21 11:23 Carbon Dioxide 24 mmol/L (22-29) 10/26/21 11:23 Anion Gap 14.8 (5-19) 10/26/21 11:23 BUN 9 mg/dL (8-23) 10/26/21 11:23 Creatinine 0.9 mg/dL (0.7-1.2) 10/26/21 11:23 GFR Calculation 83.9 mL/min (90-130) L 10/26/21 11:23 Glucose 142 mg/dL (65-115) H 10/26/21 11:23 Calculated Osmolality 287 mOsm/kg (285-295) 10/26/21 11:23 Calcium 9.1 mg/dL (8.5-10.5) 10/26/21 11:23 Iron 100 ug/dL (59-158) 10/26/21 16:00 TIBC 247 mcg/dl 10/26/21 16:00 % Saturation 40.4 % (20-50) 10/26/21 16:00 Unsat Iron Binding 147 ug/dL (112-347) 10/26/21 16:00 Total Bilirubin 0.5 mg/dL (0.15-1.2) 10/26/21 11:23 AST 18 U/L (0-40) 10/26/21 11:23 ALT 10 U/L (0-41) 10/26/21 11:23 Alkaline Phosphatase 89 IU/L (40-130) 10/26/21 11:23 Troponin T Baseline 8 ng/L (0-15) 10/26/21 11:23 Troponin T 120 Minute 7.85 ng/L (0-15) 10/26/21 16:00 Delta Troponin T -0.15 ABS# (0-10) L 10/26/21 16:00 NT-Pro-B Natriuret Pep 383 pg/mL (0-125) H 10/26/21 11:23 Total Protein 6.3 g/dL (6.6-8.7) L 10/26/21 11:23 Albumin 4.0 g/dL (3.5-5.2) 10/26/21 11:23 Globulin 2.3 g/dL (1.3-4.6) 10/26/21 11:23 Lipase 15 U/L (13-60) 10/26/21 11:23 Vitamin B12 313 pg/mL (232-1245) 10/26/21 16:00 TSH 1.85 uIU/mL (0.27-4.20) 10/26/21 16:00 Discharge Plan Discharge Patient Disposition: Admitted As Inpatient Admit Provider: Oren Tillman Clinical Impression: Chest pain Condition: Stable Discharge Diet: Regular Discharge Activity: Resume usual activity Coding Level of Care Code ED Neonatal Nurse for Chg Fwd Exam Comprehensive
--- NOTE | 2021-10-26 13:08 | ECG_ITS ---
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 Measurements Intervals [place] Rate: 45 P: 62 IN: 230 QRS: -12 QRSD: 181 T: 96 QT: 535 QTc: 468 Interpretive Statements SINUS BRADYCARDIA WITH FIRST DEGREE AV BLOCK LEFT BUNDLE BRANCH BLOCK [120+ ms QRS DURATION, 80+ ms Q/S IN V1/V2, 85+ ms R IN I/aVL/V5/V6] Compared to ECG 10/26/2021 14:49:35 No significant changes Electronically Signed On 10-28-2021 8:09:53 CDT by Steve Huang M.D. [id number]
--- NOTE | 2021-10-26 13:08 | XRR_ITS ---
PROCEDURE INFORMATION: Exam: XR Chest Exam date and time: 10/26/2021 1:26 PM Age: 66 years old Clinical indication: Pain; Angina pectoris; Additional info: Chest pain TECHNIQUE: Imaging protocol: Radiologic exam of the chest. Views: 1 view. COMPARISON: CR XR chest 1V portable [id number] 06/16/2019 1:53 PM FINDINGS: Lungs: Emphysematous changes. Pleural spaces: Unremarkable. No pleural effusion. No pneumothorax. Heart/Mediastinum: Unremarkable. No cardiomegaly. Bones/joints: Unremarkable. XR/XR chest 1V portable [id number] IMPRESSION: Emphysematous changes, lungs are clear
[2021-10-26 13:19] LABS: Basophils # 0.1 10^3/uL (0.0-0.1); Basophils % 1.8 %; Eosinophils # 0.3 10^3/uL (0.0-0.8); Hematocrit 41.3 % (42.0-52.0); Hemoglobin 14.2 g/dL (11.7-16.6); Lymphocytes # 2.1 10^3/uL (0.8-4.8); Lymphocytes % 33.4 %; Mean Corpuscular HGB Conc 34.4 g/dL (30.0-36.0); Mean Corpuscular Hemoglobin 31.6 pg (28.0-34.0); Mean Platelet Volume 9.7 fL (7.4-10.4); Monocytes # 0.7 10^3/uL (0.2-0.9); Monocytes % 10.6 %; Neutrophils # 3.11 10^3/uL (1.8-7.7); Neutrophils % 49.9 %; Nucleated Red Blood Cells % 0 %; Platelet Count 235 10^3/cmm (130-400); Red Blood Count 4.49 10^6/uL (4.1-5.3); Red Cell Distribution Width 12.4 % (12.1-15.1); White Blood Count 6.2 10^3/uL (4.0-10.0)
[2021-10-26 13:33] LABS: Troponin(5th) Baseline 8 ng/L (0-15)
[2021-10-26 13:40] LABS: Alanine Aminotransferase 10 U/L (0-41); Alkaline Phosphatase 89 IU/L (40-130); Anion Gap 14.8 (5-19); Aspartate Amino Transferase 18 U/L (0-40); Blood Urea Nitrogen 9 mg/dL (8-23); Calcium 9.1 mg/dL (8.5-10.5); Carbon Dioxide 24 mmol/L (22-29); Chloride 103 mmol/L (98-107); Globulin 2.3 g/dL (1.3-4.6); Glomerular Filtration Rate 83.9 mL/min (90-130); Glucose 142 mg/dL (65-115); Lipase 15 U/L (13-60); NT Pro B Type Natriuretic Pept 383 pg/mL (0-125); Osmolality Calculated 287 mOsm/kg (285-295); Potassium 3.8 mmol/L (3.5-5.1); Sodium 138 mmol/L (136-145); Total Bilirubin 0.5 mg/dL (0.15-1.2); Total Protein 6.3 g/dL (6.6-8.7)
--- NOTE | 2021-10-26 13:43 | CTR_ITS ---
PROCEDURE INFORMATION: Exam: CT Head Without Contrast Exam date and time: 10/26/2021 2:02 PM Age: 66 years old Clinical indication: Other: Presyncope, difficulty walking TECHNIQUE: Imaging protocol: Computed tomography of the head without contrast. Radiation optimization: All CT scans at this facility use at least one of these dose optimization techniques: automated exposure control; mA and/or kV adjustment per patient size (includes targeted exams where dose is matched to clinical indication); or iterative reconstruction. COMPARISON: No relevant prior studies available. RADIATION DOSE METRICS: Total DLP (mGy-cm): 1185.68 FINDINGS: Brain: Normal. No hemorrhage. Unremarkable white matter. No mass effect. Cerebral ventricles: No ventriculomegaly. Paranasal sinuses: Paranasal sinus opacifications. Mastoid air cells: Visualized mastoid air cells are well aerated. Bones/joints: Unremarkable. No acute fracture. Soft tissues: Unremarkable. CT/CT head wo con* [id number] IMPRESSION: Negative for intracranial hemorrhage or mass effect.
--- NOTE | 2021-10-26 15:08 | ECG_ITS ---
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 Measurements Intervals [place] Rate: 46 P: 59 SD: 222 QRS: -28 QRSD: 182 T: 91 QT: 532 QTc: 466 Interpretive Statements SINUS BRADYCARDIA WITH FIRST DEGREE AV BLOCK LEFT BUNDLE BRANCH BLOCK [120+ ms QRS DURATION, 80+ ms Q/S IN V1/V2, 85+ ms R IN I/aVL/V5/V6] Compared to ECG 10/26/2021 12:55:59 No significant changes Electronically Signed On 10-28-2021 18:16:51 CDT by Steve Huang M.D. [id number]
--- NOTE | 2021-10-26 15:34 | CTR_ITS ---
PROCEDURE INFORMATION: Exam: CTA Head With Contrast, Arteries Exam date and time: 10/26/2021 3:47 PM Age: 66 years old Clinical indication: Numbness and weakness; Additional info: Facial numbness, presyncope TECHNIQUE: Imaging protocol: Computed tomographic angiography of the head with contrast. 3D rendering (Not supervised by radiologist): MIP and/or 3D reconstructed images were created by the technologist. Radiation optimization: All CT scans at this facility use at least one of these dose optimization techniques: automated exposure control; mA and/or kV adjustment per patient size (includes targeted exams where dose is matched to clinical indication); or iterative reconstruction. Contrast material: OMNIPAQUE 350; Contrast volume: 95 ml; Contrast route: INTRAVENOUS (IV); COMPARISON: CT head wo con* [id number] 10/26/2021 2:02 PM RADIATION DOSE METRICS: Total DLP (mGy-cm): 481.65 FINDINGS: ANTERIOR CIRCULATION: Right internal carotid artery: Unremarkable. Intracranial segment is patent with no significant stenosis. No aneurysm. Right middle cerebral artery: Unremarkable. No occlusion or significant stenosis. No aneurysm. Right anterior cerebral artery: Unremarkable. No occlusion or significant stenosis. No aneurysm. Left internal carotid artery: Unremarkable. Intracranial segment is patent with no significant stenosis. No aneurysm. Left middle cerebral artery: Unremarkable. No occlusion or significant stenosis. No aneurysm. Left anterior cerebral artery: Unremarkable. No occlusion or significant stenosis. No aneurysm. 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 No occlusion or significant stenosis. No aneurysm. Left vertebral artery: Unremarkable. No occlusion or significant stenosis. No aneurysm. Basilar artery: Unremarkable. No occlusion or significant stenosis. No aneurysm. Right posterior cerebral artery: Unremarkable. No occlusion or significant stenosis. No aneurysm. Left posterior cerebral artery: Unremarkable. No occlusion or significant stenosis. No aneurysm. Brain: No definite mass, mass effect, or midline shift. Cerebral ventricles: No ventriculomegaly. Bones/joints: Unremarkable. No acute fracture. Soft tissues: Unremarkable. PROCEDURE INFORMATION: Exam: CTA Neck With Contrast Exam date and time: 10/26/2021 3:47 PM Age: 66 years old Clinical indication: Numbness and weakness; Additional info: Facial numbness, presyncope TECHNIQUE: Imaging protocol: Computed tomographic angiography of the neck with contrast. 3D rendering (Not supervised by radiologist): MIP and/or 3D reconstructed images were created by the technologist. Radiation optimization: All CT scans at this facility use at least one of these dose optimization techniques: automated exposure control; mA and/or kV adjustment per patient size (includes targeted exams where dose is matched to clinical indication); or iterative reconstruction. Contrast material: OMNIPAQUE 350; Contrast volume: 95 ml; Contrast route: INTRAVENOUS (IV); COMPARISON: CT head wo con* [id number] 10/26/2021 2:02 PM RADIATION DOSE METRICS: Total DLP (mGy-cm): 481.65 FINDINGS: Right common carotid artery: No stenosis. No dissection or occlusion. Right internal carotid artery: No stenosis of the extracranial segment. No dissection or occlusion. Right external carotid artery: No occlusion or stenosis of the origin. Left common carotid artery: There is some atherosclerotic plaque distal left common carotid artery without significant stenosis. No dissection or occlusion. Left internal carotid artery: No stenosis of the extracranial segment. No dissection or occlusion. Left external carotid artery: No occlusion or stenosis of the origin. Right vertebral artery: No stenosis. No dissection or occlusion. Left vertebral artery: No stenosis. No dissection or occlusion. Soft tissues: Normal. No significant soft tissue swelling. Bones/joints: No acute fracture. CT/CT angio headneck* [id number] IMPRESSION: No large vessel stenosis or occlusion. IMPRESSION: No stenosis or occlusion. REFERENCES: NASCET CRITERIA. The degree of internal carotid artery stenosis is based on NASCET criteria. Normal is no stenosis. Mild is less than 50% stenosis. Moderate is 50-69% stenosis. Severe is 70% to 99% stenosis. Total occlusion is no detectable patent lumen.
--- NOTE | 2021-10-26 15:36 | PC.NURSE ---
physician notified Pt reported that he has numbness on his left check radiating to left lateral neck w/ pain. assess neurologically. no abnormalities noted. able to feel pain on left check, no focal deficits such as facial drooping or lip drooping. no headache.
[2021-10-26] MEDS: iohexol 350 mg/mL 100 mL Btl IV (15:54)
[2021-10-26 16:58] LABS: Troponin 5 2HR 7.85 ng/L (0-15)
[2021-10-26 17:07] LABS: Troponin 5 2HR Delta -0.15 ABS# (0-10)
--- NOTE | 2021-10-26 17:52 | PC.NURSE ---
report called to M/Duran Koch RN updated.
--- NOTE | 2021-10-26 18:09 | USCV_ITS ---
Eugenio Jack Age: 66 Gender: M : 1955 Exam Date: 10/26/2021 20:38 Ordering Phys: Oren Tillman MD Technologist: Joe Newton [place] [facility] [place]: nicm / chest pain BP: 105 / 54 HR: 47 Rhythm: Sinus Technical Quality: Adequate MEASUREMENTS (Male / Female) Normal Values 2D ECHO LV Diastolic Diameter PLAX 4.0 cm 4.2 - 5.9 / 3.9 - 5.3 cm LV Systolic Diameter PLAX 2.8 cm IVS Diastolic Thickness 2.3 cm 0.6 - 1.0 / 0.6 - 0.9 cm IVS Systolic Thickness 3.0 cm LVPW Diastolic Thickness 1.4 cm 0.6 - 1.0 / 0.6 - 0.9 cm LVPW Systolic Thickness 1.7 cm LVOT Diameter 2.3 cm LV Ejection Fraction 2D Teich 43.0 % LV Ejection Fraction MOD 2C 58.2 % LV Ejection Fraction 2C AL 57.4 % LA Diameter 2.9 cm LA Width 3.4 cm LA Height 3.4 cm Aorta at Sinotubular Diameter 2.9 cm IVC Diameter 1.1 cm M-MODE Aortic Annulus Diameter 3.8 cm LA Ao Ratio MM 0.7 MV E Point Septal Separation 1.9 cm DOPPLER AV Peak Velocity 60.8 cm/s LVOT Peak Velocity 43.0 cm/s AV Area Cont Eq vti 2.5 cm squared AV Area Cont Eq pk 3.0 cm squared MV Area PHT 3.2 cm squared Mitral E to A Ratio 0.8 MV E' Velocity 35.0 cm/s Mitral E to MV E' Ratio 6.6 Mitral E to LV E' Lateral Ratio 7.1 Mitral E to LV E' Septal Ratio 6.2 TR Peak Velocity 141.9 cm/s TR Peak Gradient 8.1 mmHg TR Mean Velocity 96.8 cm/s TR Mean Gradient 4.4 mmHg TR Velocity Time Integral 29.0 cm Right Atrial Pressure 3.0 mmHg Pulmonary Artery Systolic Pressu 11.1 mmHg PV Peak Velocity 57.0 cm/s FINDINGS Left Ventricle Technically limited quality echocardiogram. LV systolic function is grossly mildly reduced with EF of 45-50%. Regional wall motion abnormalities cannot be accurately assessed because of poor ultrasonic windows. Right Ventricle Grossly normal Right Atrium Not well-visualized. Left Atrium The left atrium is normal in size. Mitral Valve Not well-visualized. Trace mitral regurgitation Aortic Valve Not well-visualized Tricuspid Valve Not well-visualized. Trace tricuspid regurgitation Pulmonic Valve Not visualized Pericardium Normal pericardium without effusion. Aorta Normal ascending aorta dimension. IVC CONCLUSIONS Technically limited quality echocardiogram because of poor ultrasonic windows. Grossly LV systolic function is mildly reduced with EF of 45 to 50%. Regional wall motion abnormalities cannot be assessed because of poor ultrasonic windows. Trace mitral regurgitation. Trace tricuspid regurgitation. Compared to prior echocardiogram from 12/19/2013, no significant changes are seen Steve Huang MD (Electronically Signed) Final Date: 27 October 2021 12:48 S
--- NOTE | 2021-10-26 18:11 | ECG_ITS ---
[facility] Test Date: 2021-10-28 Pat Name: Jack Becker Department: Room: 255 Gender: Male Financial Assistance Specialist: Elisa Ly : 1955 Requested By: Oren Tillman Order Number: [id number] Johnny MD: Ty Ortega M.D. Interpretive Statements PROCEDURE: At the baseline, the EKG revealed normal sinus rhythm with a left bundle branch block. The baseline blood pressure was 120/66 mm Hg with a heart rate of 58 beats/min. Lexiscan was infused over a period of 20 seconds. A total of 0.4 milligrams of Lexiscan was infused. The stress phase was continued for a total of 5 minutes. Heart rate at the end of the stress phase was 84 with a blood pressure 116/59. The EKG at the peak infusion revealed no significant changes. Sestamibi was injected 20 seconds after the Lexiscan infusion. Blood pressure at the end of the recovery phase was 123/64 with a heart rate of 80 per minute. CONCLUSION: 1. The EKG response to Lexiscan infusion is uninterpretable because of the baseline changes 2. No LexiScan induced chest pain or cardiac arrhythmia 3. Normal blood pressure and heart rate response 4. Sestamibi/sestamibi perfusion scan pending; see separate report. Electronically Signed On 10-28-2021 14:03:28 CDT by Ty Ortega M.D. [id number]
--- NOTE | 2021-10-26 18:12 | P.HP_ITS ---
Providers/Chief Complaint Admitting Physician: Oren Tillman MD Primary Care Provider: Sherif Whitten Chief Complaint: cp,weakness History of Present Illness Jack Becker is a 66 year old male with past medical history of hypertension, nonischemic cardiomyopathy with an EF of 45 to 50% and a left bundle branch block, former smoker with last coronary angiogram in 2013 which showed normal coronaries presented to the Er with c/o chest pain which has become more pron ounced ove rthe past week. Patient is a poor historian and it is difficult to obtain details however does endorse feeling chest discomfort and subjective dyspnea upon ambulation. Additionally decribes feeling light headed, especially while getting up from a lying down or sitting position. Noted today to have sinus bradycardia on EKG, negative troponon series Review of Systems General: Reports: 10 or more systems reviewed and unremarkable except in HPI and below Const: Denies: fever(s), chills, body aches, change in appetite, change in weight, malaise, night sweats, diaphoresis, change in sleep pattern, daytime sleepiness or snoring Eyes: Denies: change in vision, blurry vision, photophobia, eye discomfort or eye discharge ENMT: Denies: throat pain, enlarged tonsils, hoarseness, mouth pain, oral sores, dry mouth, tinnitus, nasal congestion or post nasal drip Card: Denies: chest pain, palpitations, irregular heart rhythm, edema, swelling of feet/ankles, lightheadedness, syncope, pre-syncope, dyspnea on exertion, orthopnea, leg pain with exertion or acrocyanosis Resp: Denies: dyspnea, productive cough, non-productive cough, wheezing, stridor, pain on inspiration, change in phlegm color, hemoptysis or chest congestion GI: Denies: abdominal pain, nausea, vomiting, hematemesis, coffee ground emesis, dysphagia, heartburn, diarrhea, constipation, bloating, GI cramping, change in bowel habits, pain on defecation, hematochezia or melena : Denies: flank pain, difficulty urinating, dysuria, urinary frequency, urinary urgency, urinary hesitancy, urinary dribbling, difficulty starting urination, change in urine stream, nocturia or hematuria Musc: Denies: neck pain, back pain, extremity pain, joint pain, joint swelling, joint redness, joint stiffness or limited range of motion Neuro: Denies: headache(s), numbness in extremities, weakness in extremities, sensory changes, lack of coordination, difficulty walking, frequent falls, dizziness, vertigo, confusion, Slurred speech present, difficulty communicating thoughts or seizure-like activity Psych: Denies: anxiety, depression, mood swings, panic attacks, hopelessness or irritability Endo: Denies: polyuria, polydipsia, tired all the time, cold intolerance, excessive sweating, flushing or heat intolerance Joseph/Lymph: Denies: easy bruising or easy bleeding All/Imm: Denies: tongue swelling, facial swelling or acute wheezing Medications/Allergies Home Medications Medication Instructions Recorded Confirmed Last Taken Type metoprolol tartrate 25 mg tablet 25 mg PO BID #180 tab 03/15/21 10/26/21 10/26/21 Rx nitroglycerin 0.4 mg sublingual 0.4 mg SUBLINGUAL Q5M PRN #30 tab 03/15/2110/26/21 Rx tablet tamsulosin 0.4 mg capsule (Flomax) 0.4 mg PO DAILY 07/08/21 10/26/21 10/25/21 History aspirin 81 mg chewable tablet 81 mg PO DAILY 10/26/21 10/26/21 10/26/21 History loratadine 10 mg tablet 10 mg PO DAILY 10/26/21 10/26/21 10/26/21 History Allergies Allergy/AdvReac Type Severity Reaction Status Date / Time No Known Allergies Allergy Verified 09/07/21 09:21 PFSH Acute PFSH: Medical History (Updated 10/27/21 @ 12:00 by Oren Tillman MD) Hypertension Left bundle branch block Non-ischemic cardiomyopathy LVEF 40-45% Right groin hernia Tobacco abuse Surgical History (Updated 10/27/21 @ 12:00 by Oren Tillman MD) Hx of hernia repair Laparoscopic Inguinal Hernia Repair 20923/right inguinal hernia Family History Father CAD (coronary artery disease) Grandfather CAD (coronary artery disease) Stroke Brother Diabetes Hypertension Denies family history of Clotting disorder Dementia Hyperlipidemia Psychiatric illness Chronic kidney disease (CKD) Suicide Anesthesia complication Bleeding disorder Family history of premature coronary artery disease Lung disease Cancer Social History Smoking and tobacco status: current some day smoker Alcohol intake: never Marital status: Single service: No Current occupational status: retired Vitals/I&O/Wt Last Vital Signs Temp 97.6 F 10/26/21 14:32 Pulse 54 L 10/26/21 17:30 Resp 17 10/26/21 12:55 BP 105/54 10/26/21 17:30 Pulse Ox 94 10/26/21 17:30 Physical Exam Narrative: General: No acute distress, AO x3 HEENT: PERRLA, pupils bilaterally equal and reactive Chest: Normal vesicular breath sounds, no added sounds, equal good air entry bilaterally CVS: S1-S2 regular, bradycardia, no murmurs, no tachycardia, no gallops, no rubs Abdomen: Soft, nontender, no organomegaly, bowel sounds present Neuro: No focal deficits, no facial deformity, AO x3, power 5/5 in all limbs Data : 10/27/21 04:40 10/27/21 04:40 Other Labs: Abnormal lab results 10/26/21 10/26/21 10/26/21 Range/Units 11:23 11:23 16:00 Hct 41.3 L (42.0-52.0) % GFR Calculation 83.9 L (90-130) mL/min Glucose 142 H (65-115) mg/dL Delta Troponin T -0.15 L (0-10) ABS# NT-Pro-B Natriuret Pep 383 H (0-125) pg/mL Total Protein 6.3 L (6.6-8.7) g/dL HDL Cholesterol (60-100) mg/dL 10/27/21 10/27/21 Range/Units 04:40 04:40 Hct 39.9 L (42.0-52.0) % GFR Calculation (90-130) mL/min Glucose (65-115) mg/dL Delta Troponin T (0-10) ABS# NT-Pro-B Natriuret Pep (0-125) pg/mL Total Protein 6.2 L (6.6-8.7) g/dL HDL Cholesterol 47 L (60-100) mg/dL Radiology Impressions Chest X-Ray 10/26/21 13:08 IMPRESSION: Emphysematous changes, lungs are clear Head CT 10/26/21 13:43 IMPRESSION: Negative for intracranial hemorrhage or mass effect. Head/Neck CTA 10/26/21 15:34 IMPRESSION: No large vessel stenosis or occlusion. IMPRESSION: No stenosis or occlusion. REFERENCES: NASCET CRITERIA. The degree of internal carotid artery stenosis is based on NASCET criteria. Normal is no stenosis. Mild is less than 50% stenosis. Moderate is 50-69% stenosis. Severe is 70% to 99% stenosis. Total occlusion is no detectable patent lumen. Laboratory Results WBC 6.4 10^3/uL (4.0-10.0) 10/27/21 04:40 RBC 4.54 10^6/uL (4.1-5.3) 10/27/21 04:40 Hgb 13.9 g/dL (11.7-16.6) 10/27/21 04:40 Hct 39.9 % (42.0-52.0) L 10/27/21 04:40 MCV 87.9 fl (80-94) 10/27/21 04:40 MCH 30.6 pg (28.0-34.0) 10/27/21 04:40 MCHC 34.8 g/dL (30.0-36.0) 10/27/21 04:40 RDW 12.2 % (12.1-15.1) 10/27/21 04:40 Plt Count 197 10^3/cmm (130-400) 10/27/21 04:40 MPV 9.1 fL (7.4-10.4) 10/27/21 04:40 Neut % (Auto) 53.4 % 10/27/21 04:40 Lymph % (Auto) 30.5 % 10/27/21 04:40 [place] % (Auto) 8.4 % 10/27/21 04:40 Eos % (Auto) 6.2 % 10/27/21 04:40 Baso % (Auto) 1.2 % 10/27/21 04:40 Neut # (Auto) 3.43 10^3/uL (1.8-7.7) 10/27/21 04:40 Lymph # (Auto) 2.0 10^3/uL (0.8-4.8) 10/27/21 04:40 [place] # (Auto) 0.5 10^3/uL (0.2-0.9) 10/27/21 04:40 Eos # (Auto) 0.4 10^3/uL (0.0-0.8) 10/27/21 04:40 Baso # (Auto) 0.1 10^3/uL (0.0-0.1) 10/27/21 04:40 Nucleated RBC % (auto) 0 % 10/27/21 04:40 Nucleated RBCs # 0.0 /100WBC 10/27/21 04:40 D-Dimer 0.47 ug/mIFEU (0-0.59) 10/26/21 19:00 Sodium 140 mmol/L (136-145) 10/27/21 04:40 Potassium 3.9 mmol/L (3.5-5.1) 10/27/21 04:40 Chloride 106 mmol/L (98-107) 10/27/21 04:40 Carbon Dioxide 25 mmol/L (22-29) 10/27/21 04:40 Anion Gap 12.9 (5-19) 10/27/21 04:40 BUN 10 mg/dL (8-23) 10/27/21 04:40 Creatinine 0.8 mg/dL (0.7-1.2) 10/27/21 04:40 GFR Calculation 96.1 mL/min (90-130) 10/27/21 04:40 Glucose 88 mg/dL (65-115) 10/27/21 04:40 Estimat Average Glucose 111 10/27/21 04:40 Hemoglobin A1c 5.5 % (4.0-6.0) 10/27/21 04:40 Calculated Osmolality 288 mOsm/kg (285-295) 10/27/21 04:40 Calcium 9.0 mg/dL (8.5-10.5) 10/27/21 04:40 Iron 100 ug/dL (59-158) 10/26/21 16:00 TIBC 247 mcg/dl 10/26/21 16:00 % Saturation 40.4 % (20-50) 10/26/21 16:00 Unsat Iron Binding 147 ug/dL (112-347) 10/26/21 16:00 Total Bilirubin 0.4 mg/dL (0.15-1.2) 10/27/21 04:40 AST 17 U/L (0-40) 10/27/21 04:40 ALT 9 U/L (0-41) 10/27/21 04:40 Alkaline Phosphatase 89 IU/L (40-130) 10/27/21 04:40 Troponin T Baseline 8 ng/L (0-15) 10/26/21 11:23 Troponin T 120 Minute 7.85 ng/L (0-15) 10/26/21 16:00 Delta Troponin T -0.15 ABS# (0-10) L 10/26/21 16:00 Troponin T Hi Sens 6Hr 10.43 ng/L (0-15) 10/26/21 21:02 Troponin T Hi Sens 6Hr Delta 2.43 ng/L (0-12) 10/26/21 21:02 NT-Pro-B Natriuret Pep 383 pg/mL (0-125) H 10/26/21 11:23 Total Protein 6.2 g/dL (6.6-8.7) L 10/27/21 04:40 Albumin 3.7 g/dL (3.5-5.2) 10/27/21 04:40 Globulin 2.5 g/dL (1.3-4.6) 10/27/21 04:40 Triglycerides 83 mg/dL (0-150) 10/27/21 04:40 Cholesterol 163 mg/dL (0-200) 10/27/21 04:40 LDL Cholesterol, Calc 99 mg/dL (50-129) 10/27/21 04:40 Total VLDL Cholesterol 17 mg/dL (0-30) 10/27/21 04:40 HDL Cholesterol 47 mg/dL (60-100) L 10/27/21 04:40 Cholesterol/HDL Ratio 3.47 mg/dL (1.0-5.00) 10/27/21 04:40 Lipase 15 U/L (13-60) 10/26/21 11:23 Vitamin B12 313 pg/mL (232-1245) 10/26/21 16:00 Folate 18.4 ng/mL (4.5-32.2) 10/26/21 19:00 TSH 1.85 uIU/mL (0.27-4.20) 10/26/21 16:00 Urine Color Colorless (Yellow) 10/26/21 19:05 Urine Appearance Clear (CLEAR) 10/26/21 19:05 Urine pH 7 (5-7) 10/26/21 19:05 Ur Specific [place] 1.005 (1.005-1.030) 10/26/21 19:05 Urine Protein Neg (Negative) 10/26/21 19:05 Urine Glucose (UA) Norm (Normal) 10/26/21 19:05 Urine Ketones Negative (Negative) 10/26/21 19:05 Urine Blood Neg (Negative) 10/26/21 19:05 Urine Nitrate Negative (Negative) 10/26/21 19:05 Urine Bilirubin Neg (Negative) 10/26/21 19:05 Urine Urobilinogen Norm mg/dL (Negative) 10/26/21 19:05 Ur Leukocyte Esterase Negative (Negative) 10/26/21 19:05 Urine Opiates Screen Negative ng/mL (Negative) 10/26/21 19:05 Ur Barbiturates Screen Negative ng/mL (Negative) 10/26/21 19:05 Ur Phencyclidine Scrn Negative ng/mL (Negative) 10/26/21 19:05 Ur Amphetamines Screen Negative ng/mL (Negative) 10/26/21 19:05 U Benzodiazepines Scrn Negative ng/mL (Negative) 10/26/21 19:05 Urine Cocaine Screen Negative ng/mL (Negative) 10/26/21 19:05 U Marijuana (THC) Screen Negative ng/mL (Negative) 10/26/21 19:05 Influenza Type A Ag Negative (Negative) 10/26/21 18:25 Influenza Type B Ag Negative (Negative) 10/26/21 18:25 A&P Assessment and plan (1) Chest pain: Status: Acute (2) Sinus bradycardia: Status: Acute (3) Pre-syncope: Status: Acute (4) Non-ischemic cardiomyopathy: Status: Chronic (5) Hypertension: Status: Chronic Qualifiers: Hypertension type: essential hypertension Qualified Code(s): I10 - Essential (primary) hypertension Plan 66-year-old male with past medical history of nonischemic cardiomyopathy presenting today with complaints of chest pain and lightheadedness. CT and CTA head without any acute intracranial events. Presyncope most likely secondary to bradycardia. Cannot rule out cardiac event. Troponins cycle 4 now negative. Admit to telemetry monitoring. Sinus bradycardia may be related to use of metoprolol, will hold for now and monitor closely. Blood pressure currently ranging within normal range. Screen with D-dimer to evaluate for possibility of PE, if positive will obtain CTA of the chest. Troponin series without significant delta at this time, however cannot exclude possibility of anginal chest pain. Will perform stress test to evaluate for the same. Full code. Cardiac diet. Heparin for DVT prophylaxis. Attestations Medical Necessity Statement*: Admit 2 midnights for bradycardia leading to presyncope while ischemic etiology is ruled out Time Spent in Patient Care: Greater than 35 minutes Coding Level of Care Code Acute [employer]in Exterminator for [facility] Fwd Diagnoses Chest pain R07.9 Sinus bradycardia R00.1 Pre-syncope R55 Non-ischemic cardiomyopathy I42.8 Hypertension I10 Hypertension type: essential hypertension
--- NOTE | 2021-10-26 18:34 | PC.NURSE ---
received into room 276-2 from er via stretcher at 1820.so at bedside.denies cp at present.sb on monitor.alert and oriented x 4.oriented to room environment.instructed to notify staff for any cp,sob,numbness..or for any concerns at all.pt verb understanding of instructions
[2021-10-26 18:47] LABS: Iron 100 ug/dL (59-158); Percent Saturation 40.4 % (20-50); Total Iron Binding Capacity 247 mcg/dl; Unsaturated Iron Binding 147 ug/dL (112-347)
[2021-10-26 18:52] LABS: Thyroid Stimulating Hormone 1.85 uIU/mL (0.27-4.20)
[2021-10-26 19:01] LABS: Vitamin B12 313 pg/mL (232-1245)
[2021-10-26 19:01] LABS: Influenza A by IFA Negative (Negative); Influenza B by IFA Negative (Negative)
--- NOTE | 2021-10-26 19:08 | ECG_ITS ---
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 Measurements Intervals [place] Rate: 43 P: 12 [place]: 238 QRS: 99 QRSD: 182 T: -32 QT: 517 QTc: 440 Interpretive Statements SINUS BRADYCARDIA WITH FIRST DEGREE AV BLOCK BORDERLINE RIGHT AXIS DEVIATION [QRS AXIS > 90] LEFT BUNDLE BRANCH BLOCK [120+ ms QRS DURATION, 80+ ms Q/S IN V1/V2, 85+ ms R IN I/aVL/V5/V6] Compared to ECG 07/12/2021 09:49:49 Left bundle-branch block now present Left-axis deviation no longer present Intraventricular conduction delay no longer present Electronically Signed On 10-28-2021 18:17:06 CDT by Steve Huang M.D. [id number]
[2021-10-26 19:19] LABS: Add Urine Microscopic? NO; Charge for UA Resulting for Rev
[2021-10-26 19:22] LABS: Bilirubin Urine Neg (Negative); Blood Urine Neg (Negative); Glucose Urine UA Norm (Normal); Ketones Urine Negative (Negative); Leukocyte Esterase Urine Negative (Negative); Nitrate Urine Negative (Negative); Protein Urine Neg (Negative); Specific Gravity, Urine 1.005 (1.005-1.030); Urine Appearance Clear (CLEAR); Urine Color Colorless (Yellow); Urobilinogen Urine Norm (Negative); pH Urine 7 (5-7)
[2021-10-26 19:31] LABS: Amphetamines Screen Urine Negative (Negative); Barbiturates Screen Urine Negative (Negative); Benzodiazepines Screen Urine Negative (Negative); Cocaine Screen Urine Negative (Negative); Opiate Screen Urine Negative (Negative); PCP Screen Urine Negative (Negative); THC Screen Urine Negative (Negative)
[2021-10-26 19:44] LABS: D Dimer 0.47 ug/mIFEU (0-0.59)
[2021-10-26 20:08] LABS: Folate Level 18.4 ng/mL (4.5-32.2)
--- NOTE | 2021-10-26 20:43 | PC.NURSE ---
Called and spoke with regarding pain complaint of neck pain with no prn orders, no diet orders, and requesting to move patient to med/surg with tele. Dr oswald gave orders for tyleonol, and ok to move to medsurg with tele
[2021-10-26 21:41] LABS: Troponin 5 6HR 10.43 ng/L (0-15)
[2021-10-26] MEDS: acetaminophen 325 mg Tablet 650 MG PO (21:48)
[2021-10-26 22:00] LABS: Troponin 5 6HR Delta 2.43 ng/L (0-12)
[2021-10-27] VITALS (8 sets, daily range): BP systolic 108–134; BP diastolic 54–75; PULSE 49–65; RESP 16–18; TEMP 36.1–37.4; O2SAT 93–97
[2021-10-27 05:17] LABS: Basophils # 0.1 10^3/uL (0.0-0.1); Basophils % 1.2 %; Eosinophils # 0.4 10^3/uL (0.0-0.8); Eosinophils % 6.2 %; Hematocrit 39.9 % (42.0-52.0); Hemoglobin 13.9 g/dL (11.7-16.6); Lymphocytes % 30.5 %; Mean Corpuscular HGB Conc 34.8 g/dL (30.0-36.0); Mean Corpuscular Hemoglobin 30.6 pg (28.0-34.0); Mean Corpuscular Volume 87.9 fl (80-94); Mean Platelet Volume 9.1 fL (7.4-10.4); Monocytes # 0.5 10^3/uL (0.2-0.9); Monocytes % 8.4 %; Neutrophils # 3.43 10^3/uL (1.8-7.7); Neutrophils % 53.4 %; Nucleated Red Blood Cells % 0 %; Platelet Count 197 10^3/cmm (130-400); Red Blood Count 4.54 10^6/uL (4.1-5.3); Red Cell Distribution Width 12.2 % (12.1-15.1); White Blood Count 6.4 10^3/uL (4.0-10.0)
[2021-10-27 05:52] LABS: Alanine Aminotransferase 9 U/L (0-41); Albumin Level 3.7 g/dL (3.5-5.2); Alkaline Phosphatase 89 IU/L (40-130); Anion Gap 12.9 (5-19); Aspartate Amino Transferase 17 U/L (0-40); Blood Urea Nitrogen 10 mg/dL (8-23); Carbon Dioxide 25 mmol/L (22-29); Chloride 106 mmol/L (98-107); Chol HDL Ratio 3.47 mg/dL (1.0-5.00); Cholesterol 163 mg/dL (0-200); Globulin 2.5 g/dL (1.3-4.6); Glomerular Filtration Rate 96.1 mL/min (90-130); Glucose 88 mg/dL (65-115); HDL Cholesterol 47 mg/dL (60-100); LDL Cholesterol Calculated 99 mg/dL (50-129); Osmolality Calculated 288 mOsm/kg (285-295); Potassium 3.9 mmol/L (3.5-5.1); Sodium 140 mmol/L (136-145); Total Bilirubin 0.4 mg/dL (0.15-1.2); Total Protein 6.2 g/dL (6.6-8.7); Triglycerides 83 mg/dL (0-150); VLDL Cholestrol Calculation 17 mg/dL (0-30)
[2021-10-27 05:53] LABS: Estmated Average Glucose 111; Hemoglobin A1C 5.5 % (4.0-6.0)
[2021-10-27 08:51] LABS: SARS Covid-2 Antigen Negative (Negative)
[2021-10-27] MEDS: ferrous gluconate 324 mg Tablet PO ×2 (09:42→17:42)
[2021-10-27] MEDS: aspirin 81 mg Chew Tablet PO (09:42)
--- NOTE | 2021-10-27 12:02 | P.PN_ITS ---
Subjective Subjective: No acute events overnight. Patient sitting up in bed having his breakfast with family at bedside. Lowers heart rate as per telemetry down to 47. It seems patient was asymptomatic. Denies any chest pain. Denies any events of syncope or presyncope. Vitals/I&O/Wt Last Vital Signs Temp 98.2 F 10/27/21 11:58 Pulse 56 L 10/27/21 11:58 Resp 16 10/27/21 11:58 BP 120/65 10/27/21 11:58 Pulse Ox 96 10/27/21 11:58 10/26/21 10/27/21 10/27/21 22:59 06:59 14:59 Intake Total 480 / 480 120 / 120 Output Total 400 / 400 175 / 575 Balance 80 / 80 -175 / -95 120 / 120 Weight last 48 hrs Weight 63.248 kg Physical Exam Narrative: General: No acute distress, AO x3 HEENT: PERRLA, pupils bilaterally equal and reactive Chest: Normal vesicular breath sounds, no added sounds, equal good air entry bilaterally CVS: S1-S2 regular, bradycardia, no murmurs, no tachycardia, no gallops, no rubs Abdomen: Soft, nontender, no organomegaly, bowel sounds present Neuro: No focal deficits, no facial deformity, AO x3, power 5/5 in all limbs Data : 10/27/21 04:40 10/27/21 04:40 A&P Assessment and plan (1) Chest pain: Status: Acute (2) Sinus bradycardia: Status: Acute (3) Pre-syncope: Status: Acute (4) Non-ischemic cardiomyopathy: Status: Chronic (5) Hypertension: Status: Chronic Qualifiers: Hypertension type: essential hypertension Qualified Code(s): I10 - Essential (primary) hypertension Plan 66-year-old male with past medical history of nonischemic cardiomyopathy presenting today with complaints of chest pain and lightheadedness. CT and CTA head without any acute intracranial events. Presyncope most likely secondary to bradycardia. Cannot rule out cardiac event. Telemetry. Pads and 0.5 mg of atropine at bedside. Continue to hold off on beta-jenny. A1c, lipid panel results appreciated. Continue with baby aspirin. Check orthostatics. Continue with Flomax. D-dimer negative we will hold off on CTA. Plan for Lexiscan stress test in a.m. Full code. Cardiac diet. Heparin for DVT prophylaxis. Attestations Medical Necessity Statement*: Requires further hospitalization for bradycardia while ischemic etiology is ruled out with Lexiscan stress test in a.m. Time Spent in Patient Care: Greater than 35 minutes Coding Level of Care Code Acute Photo Mask Pattern Generator for [facility]g Fwd Diagnoses Chest pain R07.9 Sinus bradycardia R00.1 Pre-syncope R55 Non-ischemic cardiomyopathy I42.8 Hypertension I10 Hypertension type: essential hypertension
[2021-10-27] MEDS: heparin 5,000 unit/mL INJ 1 mL 5000 UNIT SUBCUT (16:15)
[2021-10-27] MEDS: tamsulosin 0.4 mg Capsule PO (19:58)
[2021-10-27] MEDS: acetaminophen 325 mg Tablet 650 MG PO (21:07)
[2021-10-28] VITALS: BP 113/59; PULSE 46; RESP 18; TEMP 36.8; O2SAT 94
[2021-10-28] MEDS: heparin 5,000 unit/mL INJ 1 mL 5000 UNIT SUBCUT (01:39)
[2021-10-28 03:59] VITALS: BP 116/43; PULSE 54; RESP 16; TEMP 36.5; O2SAT 94
[2021-10-28 04:12] LABS: Basophils # 0.1 10^3/uL (0.0-0.1); Basophils % 1.3 %; Eosinophils # 0.5 10^3/uL (0.0-0.8); Eosinophils % 8.1 %; Hematocrit 40.5 % (42.0-52.0); Hemoglobin 14.1 g/dL (11.7-16.6); Lymphocytes # 1.8 10^3/uL (0.8-4.8); Mean Corpuscular HGB Conc 34.8 g/dL (30.0-36.0); Mean Corpuscular Hemoglobin 30.8 pg (28.0-34.0); Mean Corpuscular Volume 88.4 fl (80-94); Mean Platelet Volume 9.4 fL (7.4-10.4); Monocytes # 0.6 10^3/uL (0.2-0.9); Monocytes % 8.9 %; Neutrophils # 3.29 10^3/uL (1.8-7.7); Neutrophils % 52.5 %; Nucleated Red Blood Cells % 0 %; Platelet Count 192 10^3/cmm (130-400); Red Blood Count 4.58 10^6/uL (4.1-5.3); Red Cell Distribution Width 12.3 % (12.1-15.1); White Blood Count 6.3 10^3/uL (4.0-10.0)
[2021-10-28 04:39] LABS: Alanine Aminotransferase 8 U/L (0-41); Albumin Level 3.7 g/dL (3.5-5.2); Alkaline Phosphatase 85 IU/L (40-130); Anion Gap 13.1 (5-19); Aspartate Amino Transferase 16 U/L (0-40); Blood Urea Nitrogen 15 mg/dL (8-23); Carbon Dioxide 23 mmol/L (22-29); Chloride 105 mmol/L (98-107); Globulin 2.4 g/dL (1.3-4.6); Glomerular Filtration Rate 96.1 mL/min (90-130); Glucose 100 mg/dL (65-115); Osmolality Calculated 285 mOsm/kg (285-295); Potassium 4.1 mmol/L (3.5-5.1); Sodium 137 mmol/L (136-145); Total Bilirubin 0.5 mg/dL (0.15-1.2); Total Protein 6.1 g/dL (6.6-8.7)
--- NOTE | 2021-10-28 07:00 | NMCV_ITS ---
NM gennaro perf SPECT r/s* [id number] Jack Becker Age: 66 Gender: M : 1955 Exam Date: 10/28/2021 06:50 Ordering Phys: Oren Tillman MD Technologist: ZOE Shultz Exam Location: [facility] Indications: CHEST PAIN STRESS TEST Please see separate stress test report in [facility] for full findings IMAGE PROTOCOL Rest/Stress 1 Lexiscan Day Radiopharmaceutical Dose (mCi) Administration Site Administered by Rest: Tc-99m 11.0 IV ZOE Palomino Sestamibi Stress:Tc-99m 32.8 IV ZOE Palomino Sestamibi Rest: 28-Oct-2021 60 Discovery 630 Stress: 28-Oct-2021 30 Discovery 630 0.4mg Lexiscan. Images obtained in supine and prone position. SPECT RESULTS Technical Quality: Excellent Raw Data Analysis: Normal Image Corrections: No attenuation or motion correction applied Summed Stress Score: 13 Summed Rest Score: 14 Summed Difference Score: 1 PERFUSION FINDINGS Moderate area of moderately decreases uptake in the basal and mid anteroseptal, mid inferoseptal, mid inferior and apical segments. A subtle area of reversibility was noted in the basal anteroseptal region. FUNCTIONAL RESULTS (calculated via Gated SPECT) Stress Image LV EF (%): 33 Stress EDV (mL):175 TID: 1.03 Stress ESV (mL):118 FUNCTIONAL FINDINGS: Segmental wall motion analysis revealing diffuse hypokinesia of the left ventricle IMPRESSIONS 1. Myocardial perfusion imaging revealing moderate area of persistent decreased tracer uptake in the anteroseptal, inferoseptal, inferior and apical regions with a subtle area reversibility in the basal anteroseptal region, suggestive of myocardial scarring in the distribution of the left anterior descending artery and the right coronary artery with a very small area of possible radha-infarction ischemia. 2. Diminished ejection fraction of 33%. 3. Wall motion abnormalities as mentioned above. 4. Moderately dilated LV cavity with an end-systolic volume of 118 ml No similar previous studies are available for comparison Dr Ty Ortega MD [facility] (Electronically Signed) Final Date: 28 October 2021 13:50 S
[2021-10-28] MEDS: regadenoson 0.4 Mg/5 ml Syringe IVP (07:19)
[2021-10-28 08:32] VITALS: BP 123/64; PULSE 80
[2021-10-28 09:00] VITALS: BP 147/68; PULSE 51; RESP 16; TEMP 36.3; O2SAT 97
[2021-10-28] MEDS: aspirin 81 mg Chew Tablet PO (09:01)
[2021-10-28] MEDS: ferrous gluconate 324 mg Tablet PO (09:01)
--- NOTE | 2021-10-28 10:19 | ECG_ITS ---
[facility] Test Date: 2021-10-28 Pat Name: Jack Becker Department: Room: 255 Gender: Male Form Coverer: : 1955 Requested By: Oren Tillman Order Number: [id number] Johnny MD: Steve Huang M.D. Measurements Intervals [place] Rate: 52 P: 52 [place]: 229 QRS: -54 QRSD: 185 T: 96 QT: 506 QTc: 475 Interpretive Statements SINUS BRADYCARDIA WITH FIRST DEGREE AV BLOCK LEFT AXIS DEVIATION [QRS AXIS < -30] LEFT BUNDLE BRANCH BLOCK [120+ ms QRS DURATION, 80+ ms Q/S IN V1/V2, 85+ ms R IN I/aVL/V5/V6] Compared to ECG 10/26/2021 19:30:14 Left-axis deviation now present Electronically Signed On 10-28-2021 18:08:36 CDT by Steve Huang M.D. [id number]
--- NOTE | 2021-10-28 10:51 | PC.CHAP ---
Pastoral Care Encounter/Spiritual Assessment Type of Contact [] Declined core drier visit [] Patient/Family/Request visit [] Outpatient visit [] Follow-up visit [] Physician referral [] Code/Alert [x] Routine visit [] Staff referral [] Actively dying [] Patient sleeping [] Family support [] [] Out of room [] Palliative care [] [] Receiving care in room [] Pre-surgical visit [] Trauma [] Long length of stay [] ICU visit [] Other: Relational/Emotional Strength [x] Patient feels connected with others/family/visitors/staff [] Distress [] Loneliness/isolation [] Abandonment Spirituality of Patient [x] Person of [place] [] Attends Rastafarian of their [place] [x] Believes in Prayer [] Reads Bible or Yarsani materials [] There are Spiritual issues to be addressed [place] Interventions [x] Prayer x] Active listening [x] Non-anxious presence [] Spiritual/emotional support [] Crisis/trauma care [] Spiritual counseling [] Bereavement support [] Provided bereavement packet [] Provided Bible/devotional materials [] Provided toy/stuffed animal, coloring book to patient or family member [] Provided Communion [] Anointing/[place] [] Salvation [x] Completed spiritual assessment [] Other: Impact on Illness or Injury [] Angry [] Fearful [] Anxious [] Often cries [] Exhaustion [] Unable to work [] Unable to attend buddhist [] Unable to walk/stand [] Unable to read [] Unable to drive [] Unable to eat/drink [] Unable to sleep [] Unable to be with family [] Patient intubated [] Other: Summary Time spent with patient 10 min
[2021-10-28 11:45] VITALS: BP 151/68; PULSE 52; RESP 16; TEMP 36.4; O2SAT 97
[2021-10-28 14:05] VITALS: BP 166/95; PULSE 90; TEMP 36.9; O2SAT 95
--- NOTE | 2021-10-28 14:09 | PM.DCS ---
Discharge Providers Date of Admission: 10/26/21 17:26 Date of Discharge: October 28, 2021 Attending Provider at Admission: Oren Tillman MD Attending Provider at Discharge: Constantino Ferrera MD Primary Care Provider: Sherif Whitten Diagnoses at Discharge Discharge Diagnosis (1) Chest pain: Status: Acute (2) Sinus bradycardia: Status: Acute (3) Pre-syncope: Status: Acute (4) Non-ischemic cardiomyopathy: Status: Chronic Permanent problem details: LVEF 40-45% (5) Hypertension: Status: Chronic Qualifiers: Hypertension type: essential hypertension Qualified Code(s): I10 - Essential (primary) hypertension Reason for Visit Reason for Visit: cp,weakness Hospital Course Hospital Course HPI: Oren Tillman MD Jack Becker is a 66 year old male with?past medical history of hypertension, nonischemic cardiomyopathy with an EF of 45 to 50% and a left bundle branch block, former smoker with last coronary angiogram in 2012 which showed normal coronaries presented to the Er with c/o chest pain which has become more pronounced ove rthe past week. Patient is a poor historian and it is difficult to obtain details however does endorse feeling chest discomfort and subjective dyspnea upon ambulation. Additionally decribes feeling light headed, especially while getting up from a lying down or sitting position. Noted today to have sinus bradycardia on EKG, negative troponon series. Hospital course: Patient was admitted for the management of and work-up of chest pain, sinus bradycardia and presyncope During the hospital stay patient underwent nuclear stress test: Which showed Myocardial perfusion imaging revealing moderate area of persistent decreased tracer? uptake in the anteroseptal, inferoseptal, inferior and apical regions with a subtle area reversibility in the basal anteroseptal region, suggestive of myocardial scarring in the distribution of the left anterior descending artery and the right coronary artery with a very small area of possible radha-infarction ischemia. 2D echo was also done: Grossly LV systolic function is mildly reduced with EF of 45 to?50%.? Regional wall motion abnormalities cannot be assessed because of poor ultrasonic windows.?Trace mitral regurgitation.?Trace tricuspid regurgitation. Given the fact that the nuclear stress test is more suggestive of myocardial scarring, and patient has remained chest pain-free during the hospital stay, currently there is no need for coronary angiogram. Chest pain is likely noncardiac for his presyncope, possibly secondary to bradycardia, metoprolol was kept on hold during the hospital stay, as well as on discharge, Patient was in sinus bradycardia on telemetry, he has been advised to monitor his heart rate, keep a log of heart rate and blood pressure, and follow-up with cardiology as an outpatient for now, patient may need event monitor. Overall patient has responded well to above medical management and is being discharged in stable condition to home. He will follow with primary care physician as well as cardiology as an outpatient. Physical Exam Const: COMMON NORMALS: patient oriented x3 HENMT: COMMON NORMALS: normocephalic and atraumatic HEAD & SCALP: normocephalic and atraumatic Resp: COMMON NORMALS: clear to auscultation bilaterally EFFORT & INSPECTION: Yes symmetric chest movement AUSCULTATION: clear to auscultation bilaterally Cardio: COMMON NORMALS: regular rate, regular rhythm, S1 normal heart sound present, S2 normal heart sound present, No gallops present (Cardio), No murmurs present (Cardio), No rub (Cardio) and Peripheral pulses 2+ throughout RATE: regular rate RHYTHM: regular rhythm HEART SOUNDS: S1 normal heart sound present and S2 normal heart sound present PERIPHERAL PULSES: Peripheral pulses 2+ throughout GI: COMMON NORMALS: Normal to inspection, nondistended, normoactive bowel sounds present, Soft to palpation, non-tender, No hepatosplenomegaly present and no masses AUSCULTATION: Yes normoactive bowel sounds PALPATION: Yes Soft to palpation and Yes No hepatosplenomegaly present RECTAL EXAM: Yes deferred Extremity: COMMON NORMALS: no clubbing, cyanosis or edema and no pedal edema Neuro: COMMON NORMALS: patient oriented x3 Discharge Data Studies Completed and Pending Completed Studies During Hospitalization Category Date Time Status CT head wo con* [id number] Urgent Cat Scan 10/26/21 13:43 Completed CTA head neck [CT angio headneck* [id number]] Urgent Cat Scan 10/26/21 15:34 Completed Sestamibi Stress Test Request Routine Exams 10/26/21 18:11 Completed XR chest 1V portable [id number] Stat Exams 10/26/21 13:08 Completed NM gennaro perf SPECT r/s* [id number] Routine Nuc Med 10/28/21 07:00 Completed CV. echo complete* [id number] Routine Ultrasound 10/26/21 18:09 Completed Radiology Impressions Chest X-Ray 10/26/21 13:08 IMPRESSION: Emphysematous changes, lungs are clear Head CT 10/26/21 13:43 IMPRESSION: Negative for intracranial hemorrhage or mass effect. Head/Neck CTA 10/26/21 15:34 IMPRESSION: No large vessel stenosis or occlusion. IMPRESSION: No stenosis or occlusion. REFERENCES: NASCET CRITERIA. The degree of internal carotid artery stenosis is based on NASCET criteria. Normal is no stenosis. Mild is less than 50% stenosis. Moderate is 50-69% stenosis. Severe is 70% to 99% stenosis. Total occlusion is no detectable patent lumen. Laboratory Results WBC 6.3 10^3/uL (4.0-10.0) 10/28/21 03:20 RBC 4.58 10^6/uL (4.1-5.3) 10/28/21 03:20 Hgb 14.1 g/dL (11.7-16.6) 10/28/21 03:20 Hct 40.5 % (42.0-52.0) L 10/28/21 03:20 MCV 88.4 fl (80-94) 10/28/21 03:20 MCH 30.8 pg (28.0-34.0) 10/28/21 03:20 MCHC 34.8 g/dL (30.0-36.0) 10/28/21 03:20 RDW 12.3 % (12.1-15.1) 10/28/21 03:20 Plt Count 192 10^3/cmm (130-400) 10/28/21 03:20 MPV 9.4 fL (7.4-10.4) 10/28/21 03:20 Neut % (Auto) 52.5 % 10/28/21 03:20 Lymph % (Auto) 29.0 % 10/28/21 03:20 [place] % (Auto) 8.9 % 10/28/21 03:20 Eos % (Auto) 8.1 % 10/28/21 03:20 Baso % (Auto) 1.3 % 10/28/21 03:20 Neut # (Auto) 3.29 10^3/uL (1.8-7.7) 10/28/21 03:20 Lymph # (Auto) 1.8 10^3/uL (0.8-4.8) 10/28/21 03:20 [place] # (Auto) 0.6 10^3/uL (0.2-0.9) 10/28/21 03:20 Eos # (Auto) 0.5 10^3/uL (0.0-0.8) 10/28/21 03:20 Baso # (Auto) 0.1 10^3/uL (0.0-0.1) 10/28/21 03:20 Nucleated RBC % (auto) 0 % 10/28/21 03:20 Nucleated RBCs # 0.0 /100WBC 10/28/21 03:20 D-Dimer 0.47 ug/mIFEU (0-0.59) 10/26/21 19:00 Sodium 137 mmol/L (136-145) 10/28/21 03:20 Potassium 4.1 mmol/L (3.5-5.1) 10/28/21 03:20 Chloride 105 mmol/L (98-107) 10/28/21 03:20 Carbon Dioxide 23 mmol/L (22-29) 10/28/21 03:20 Anion Gap 13.1 (5-19) 10/28/21 03:20 BUN 15 mg/dL (8-23) 10/28/21 03:20 Creatinine 0.8 mg/dL (0.7-1.2) 10/28/21 03:20 GFR Calculation 96.1 mL/min (90-130) 10/28/21 03:20 Glucose 100 mg/dL (65-115) 10/28/21 03:20 Estimat Average Glucose 111 10/27/21 04:40 Hemoglobin A1c 5.5 % (4.0-6.0) 10/27/21 04:40 Calculated Osmolality 285 mOsm/kg (285-295) 10/28/21 03:20 Calcium 9.0 mg/dL (8.5-10.5) 10/28/21 03:20 Iron 100 ug/dL (59-158) 10/26/21 16:00 TIBC 247 mcg/dl 10/26/21 16:00 % Saturation 40.4 % (20-50) 10/26/21 16:00 Unsat Iron Binding 147 ug/dL (112-347) 10/26/21 16:00 Total Bilirubin 0.5 mg/dL (0.15-1.2) 10/28/21 03:20 AST 16 U/L (0-40) 10/28/21 03:20 ALT 8 U/L (0-41) 10/28/21 03:20 Alkaline Phosphatase 85 IU/L (40-130) 10/28/21 03:20 Troponin T Baseline 8 ng/L (0-15) 10/26/21 11:23 Troponin T 120 Minute 7.85 ng/L (0-15) 10/26/21 16:00 Delta Troponin T -0.15 ABS# (0-10) L 10/26/21 16:00 Troponin T Hi Sens 6Hr 10.43 ng/L (0-15) 10/26/21 21:02 Troponin T Hi Sens 6Hr Delta 2.43 ng/L (0-12) 10/26/21 21:02 NT-Pro-B Natriuret Pep 383 pg/mL (0-125) H 10/26/21 11:23 Total Protein 6.1 g/dL (6.6-8.7) L 10/28/21 03:20 Albumin 3.7 g/dL (3.5-5.2) 10/28/21 03:20 Globulin 2.4 g/dL (1.3-4.6) 10/28/21 03:20 Triglycerides 83 mg/dL (0-150) 10/27/21 04:40 Cholesterol 163 mg/dL (0-200) 10/27/21 04:40 LDL Cholesterol, Calc 99 mg/dL (50-129) 10/27/21 04:40 Total VLDL Cholesterol 17 mg/dL (0-30) 10/27/21 04:40 HDL Cholesterol 47 mg/dL (60-100) L 10/27/21 04:40 Cholesterol/HDL Ratio 3.47 mg/dL (1.0-5.00) 10/27/21 04:40 Lipase 15 U/L (13-60) 10/26/21 11:23 Vitamin B12 313 pg/mL (232-1245) 10/26/21 16:00 Folate 18.4 ng/mL (4.5-32.2) 10/26/21 19:00 TSH 1.85 uIU/mL (0.27-4.20) 10/26/21 16:00 Urine Color Colorless (Yellow) 10/26/21 19:05 Urine Appearance Clear (CLEAR) 10/26/21 19:05 Urine pH 7 (5-7) 10/26/21 19:05 Ur Specific [place] 1.005 (1.005-1.030) 10/26/21 19:05 Urine Protein Neg (Negative) 10/26/21 19:05 Urine Glucose (UA) Norm (Normal) 10/26/21 19:05 Urine Ketones Negative (Negative) 10/26/21 19:05 Urine Blood Neg (Negative) 10/26/21 19:05 Urine Nitrate Negative (Negative) 10/26/21 19:05 Urine Bilirubin Neg (Negative) 10/26/21 19:05 Urine Urobilinogen Norm mg/dL (Negative) 10/26/21 19:05 Ur Leukocyte Esterase Negative (Negative) 10/26/21 19:05 Urine Opiates Screen Negative ng/mL (Negative) 10/26/21 19:05 Ur Barbiturates Screen Negative ng/mL (Negative) 10/26/21 19:05 Ur Phencyclidine Scrn Negative ng/mL (Negative) 10/26/21 19:05 Ur Amphetamines Screen Negative ng/mL (Negative) 10/26/21 19:05 U Benzodiazepines Scrn Negative ng/mL (Negative) 10/26/21 19:05 Urine Cocaine Screen Negative ng/mL (Negative) 10/26/21 19:05 U Marijuana (THC) Screen Negative ng/mL (Negative) 10/26/21 19:05 Influenza Type A Ag Negative (Negative) 10/26/21 18:25 Influenza Type B Ag Negative (Negative) 10/26/21 18:25 SARS-CoV-2 Ag (Rapid) Negative (Negative) 10/27/21 07:45 Vitals Last Vital Signs Temp 98.4 F 10/28/21 14:05 Pulse 90 10/28/21 14:05 Resp 16 10/28/21 11:45 BP 166/95 10/28/21 14:05 Pulse Ox 95 10/28/21 14:05 Discharge Plan Discharge Patient Disposition: Home Condition: Stable Prescriptions: Continued nitroglycerin 0.4 mg tablet, sublingual 0.4 mg SUBLINGUAL Q5M PRN (Reason: chest pain) Qty: 30 2RF Rx Instructions: until response; do not exceed 3 doses per episode tamsulosin [Flomax] 0.4 mg capsule 0.4 mg PO DAILY 0RF aspirin 81 mg Tablet,Chewable 81 mg PO DAILY 0RF loratadine 10 mg Tablet 10 mg PO DAILY 0RF Held metoprolol tartrate 25 mg tablet 25 mg PO BID Qty: 180 3RF Hold Instructions: Resume on 11/17/21. Discharge Orders: Discharge Order (Routine); Ordered 10/28/21 Ordered By: Constantino Ferrera Referrals: Stvee Huang M.D [Physician] - 11/28/21 12:45 pm (Patient will be seeing NP. Veronica) Sherif Whitten [Primary Care Provider] - 11/01/21 11:00 am Discharge Diet: Regular Discharge Activity: Resume usual activity Patient Instructions: Bradycardia, Chest Pain - Chest Wall, Opioid Safety Discharge Attestations Time Spent in Discharge Care*: greater than 30 min Specific Discharge Activities: educating patient, educating and/or supporting family/caregiver, discussing with pcp/other providers, discussing with porter sample case/social workers/dc planners, documenting/other paperwork and evaluating patient/reviewing data Quality Metrics Clinical Quality Measures [ No reported AMI, CVA or VTE this stay] Coding Level of Care Code Acute Chg FW DC note Diagnoses Chest pain R07.9 Sinus bradycardia R00.1 Pre-syncope R55 Non-ischemic cardiomyopathy I42.8 Hypertension I10 Hypertension type: essential hypertension
== END 2021-10-28 15:24 | disposition home or self-care (01) | DRG 310 ==
LOC: ER 17:25 → MEDSURG 17:37
PROVIDERS: Admitting Provider Student in an Organized Health Care Education/Training Program; Emergency Provider Emergency Medicine; PCP Nurse Practitioner Family; Visit Provider Internal Medicine
DX: R00.1 Bradycardia, unspecified (principal); R07.89 Other chest pain; R55 Syncope and collapse; I10 Essential (primary) hypertension; I42.8 Other cardiomyopathies; Z87.891 Personal history of nicotine dependence; Z79.82 Long term (current) use of aspirin
CPT/HCPCS: 36415; 70450; 70496; 70498; 71045; 78452; 80053; 80061; 80306; 81003; 82607; 82746; 83036; 83540; 83550; 83690; 83880; 84443; 84484; 85025; 85378; 87426; 87804; 93005; 93017; 93306; 96372; 99285; A9500; J1644; J2785; Q9967

== ENCOUNTER → 2021-11-28 12:58 | Outpatient (BNVA) | payer MEDICARE, MEDICAID, SELFPAY | PROVIDERS: PCP Nurse Practitioner Family; Visit Provider Nurse Practitioner Family | DX: R07.9 Chest pain, unspecified (principal); F17.200 Nicotine dependence, unspecified, uncomplicated | CPT/HCPCS: 99213 ==

== ENCOUNTER → 2022-03-19 15:11 | Outpatient (BNVA) | payer MEDICARE, MEDICAID, SELFPAY | PROVIDERS: PCP Nurse Practitioner Family; Visit Provider Internal Medicine | DX: I42.8 Other cardiomyopathies (principal); I10 Essential (primary) hypertension; Z87.891 Personal history of nicotine dependence | CPT/HCPCS: 99214 ==

== ENCOUNTER → 2022-04-09 14:21 | Outpatient (BNVA) | payer MEDICARE, MEDICAID, SELFPAY | PROVIDERS: PCP Nurse Practitioner Family; Visit Provider Surgery | DX: Z12.11 Encounter for screening for malignant neoplasm of colon (principal) | CPT/HCPCS: 99024; 99213 ==

== ENCOUNTER 2022-05-21 09:20 | Day surgery (SDC) | payer MEDICARE, MEDICAID, SELFPAY ==
[2022-05-19 09:23] VITALS: BMI 20.2
[2022-05-21 09:53] VITALS: BP 110/57; PULSE 53; RESP 18; TEMP 36.6; O2SAT 97
[2022-05-21] MEDS: sodium chloride 0.9% 1,000 ML 30 ML IV (10:00)
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
--- NOTE | 2022-05-21 10:32 | PM.HP ---
History of Present Illness Jack Becker is a 67 year old male here for his first screening colonoscopy Medications/Allergies Home Medications Medication Instructions Recorded Confirmed Last Taken Type tamsulosin 0.4 mg capsule (Flomax) 0.4 mg PO DAILY 07/08/21 05/21/22 05/19/22 History aspirin 81 mg chewable tablet 81 mg PO DAILY 10/26/21 05/21/22 05/18/22 History loratadine 10 mg tablet 10 mg PO DAILY 10/26/21 05/21/22 05/20/22 History nitroglycerin 0.4 mg sublingual 0.4 mg sublingual Q5M PRN chest 01/06/22 05/21/22 Unknown Rx tablet pain #30 tabs fluticasone propionate 50 1 spray intranasal DAILY PRN 04/09/22 05/21/22 05/20/22 History mcg/actuation nasal Congestion spray,suspension (Children's Flonase Allergy Relief) Allergies Allergy/AdvReac Type Severity Reaction Status Date / Time No Known Allergies Allergy Verified 05/19/22 09:19 PFSH Acute PFSH: Medical History Chest pain Hypertension Left bundle branch block Non-ischemic cardiomyopathy LVEF 40-45% Pre-syncope Right groin hernia Sinus bradycardia Tobacco abuse Surgical History Hx of hernia repair Laparoscopic Inguinal Hernia Repair [id number] inguinal hernia Family History Father CAD (coronary artery disease) Grandfather CAD (coronary artery disease) Stroke Brother Diabetes Hypertension Denies family history of Clotting disorder Dementia Hyperlipidemia Psychiatric illness Chronic kidney disease (CKD) Suicide Anesthesia complication Bleeding disorder Family history of premature coronary artery disease Lung disease Cancer Social History Smoking and tobacco status: current some day smoker Alcohol intake: never Marital status: Single service: No Current occupational status: retired Vitals/I&O/Wt Last Vital Signs Temp 97.8 F 05/21/22 09:53 Pulse 53 L 05/21/22 09:53 Resp 18 05/21/22 09:53 BP 110/57 05/21/22 09:53 Pulse Ox 97 05/21/22 09:53 O2 Del Method 05/21/22 09:53 A&P Assessment and plan (1) Encounter for screening colonoscopy: Plan Colonoscopy Attestations Medical Necessity Statement*: Home Coding Level of Care Code Acute Code for Chg Fwd Diagnoses Encounter for screening colonoscopy Z12.11
[2022-05-21 10:50] VITALS: BP 104/49; PULSE 60; RESP 16; TEMP 36.1; O2SAT 97
[2022-05-21 11:00] VITALS: BP 111/61; PULSE 59; RESP 18; O2SAT 98
--- NOTE | 2022-05-21 13:42 | ANE.PACU2 ---
Inpatient post-anesthesia follow up: Airway intact: Yes Vital signs: Temperature 97 F Pulse Rate 59 Respiratory Rate 18 Blood Pressure 111/61 Pulse Oximetry 98 Oxygen Delivery Me thod Room Air Oxygen Flow Rate Fraction of Inspir ed Oxygen Hydration adequate: Yes Nausea and vomiting: No Pain level: 1 Mental status: Baseline
== END 2022-05-21 11:30 | disposition home or self-care (01) ==
PROVIDERS: Visit Provider Surgery
PROC: 0DJD8ZZ Inspection of Lower Intestinal Tract, Via Natural or Artificial Opening Endoscopic (ICD-10-PCS; CPT 45378; principal; 2022-05-21 10:30)
DX: Z12.11 Encounter for screening for malignant neoplasm of colon (principal); K57.30 Diverticulosis of large intestine without perforation or abscess without bleeding; Z79.82 Long term (current) use of aspirin; I10 Essential (primary) hypertension; I44.7 Left bundle-branch block, unspecified; F17.210 Nicotine dependence, cigarettes, uncomplicated; J44.9 Chronic obstructive pulmonary disease, unspecified; I25.10 Atherosclerotic heart disease of native coronary artery without angina pectoris; I25.2 Old myocardial infarction
CPT/HCPCS: G0121; J2704; J7030